=== PATIENT | male | born 1975 | race Two or more races ===

== ENCOUNTER 2020-06-03 15:54 | Outpatient (RCR) | payer MEDICAID, SELFPAY | END 2020-06-05 11:30 | disposition other institution (70) | LOC: HO.PT 15:54 | PROVIDERS: PCP Internal Medicine; Visit Provider General Practice | DX: M25.512 Pain in left shoulder (principal) | CPT/HCPCS: 97110; 97161 ==

== ENCOUNTER 2024-03-07 09:47 | Outpatient (AMB) | payer MEDICAID, SELFPAY ==
--- NOTE | 2024-03-07 09:59 | A.OFFVIS_ITS ---
Intake Visit Reasons: Left knee pain and giving way Intake Note: Meli is a 48 year old male who presents with complaints of progressively worsening left knee pain and giving way. The patient states that he did undergo surgery on his left knee approximately 15 years ago. He got fairly good relief from that surgery initially. The patient states that he re-injured his left knee 1 year ago. He twisted his knee and had acute onset of pain. He states that his left knee will give out several times per day. He has not been able to exercise because of his pain and instability. He has done physical therapy exercises which aggravated his pain. He has also tried Tylenol and anti- inflammatory medicines which gave him minimal relief. He would like to hold off on surgery if at all possible. Allergies No Known Allergies Allergy (Verified 03/07/24 09:59) Physical Exam Const Other: Well-nourished well-developed very friendly male awake alert and oriented x3 in no acute distress Extrem Other: Bilateral lower extremity examination shows good capillary refill, no skin lesions noted, normal sensation light touch Left knee examination shows a minimal effusion, minimal crepitus with range of motion, tenderness along his medial joint line, positive Pawel's test, no instability Results Reviewed Results Reviewed: X-rays of the patient's left knee taken today show mild diffuse joint space narrowing, no acute bony abnormalities Assessment & Plan Assessment & Plan (1) Left knee pain: Code(s): M25.562 - Pain in left knee Category: Medical Plan Mr. Edwards presents with left knee pain and mechanical symptoms most likely due to a tear of his medial meniscus. I had a lengthy discussion with the patient regarding the treatment options. He wishes to hold off on surgery for as long as possible. I agree with this plan. I did have him fitted with a stabilizing knee brace. I do feel that the braces a medical necessity to help prevent future falls because of his symptoms of instability. We will hold off on an MRI for now. I did give him a prescription for Celebrex to help with his discomfort. He will follow up with me on an as-needed basis should his symptoms not plateau at an unacceptable level over the next few months. Feel free to call me at any time should questions regarding his orthopedic management arise. Thank you very much for asking me to see this very friendly gentleman. I spent 20 minutes in reviewing the patient's records and imaging studies, seeing the patient and documenting in the medical record. Orders: Orders XR knee LT 3V Today M25.562 - Pain in left knee Medications: New celecoxib (Celebrex) 200 mg PO DAILY PRN 30 caps 2RF pain Coding Level of Care Code New Pt Level 3 (75733) Complex EM visit Add On G2211 Diagnoses Left knee pain M25.562
== END 2024-03-07 10:14 | disposition home or self-care (01) ==
PROVIDERS: PCP Internal Medicine; Visit Provider Orthopaedic Surgery
DX: M25.562 Pain in left knee (principal)
CPT/HCPCS: 99203

== ENCOUNTER 2024-03-07 10:37 | Outpatient (REF) | payer MEDICAID, SELFPAY ==
--- NOTE | ~2024-03-07 | XR_ITS ---
EXAMINATION: XR KNEE LEFT 3 VIEWS CLINICAL INFORMATION: Pain in left knee M25.562. COMPARISON: XR Left knee 01/30/2009 (report only). TECHNIQUE: Three views of the left knee. FINDINGS: No fracture or joint effusion. Alignment is anatomic. Mild medial and lateral compartment narrowing. No abnormal soft tissue calcification. Post surgical changes of the proximal tibia and distal femur. XR/XR knee LT 3V IMPRESSION: Mild medial and lateral compartment narrowing. Electronically signed by: Batsheva Bhardwaj MD 04/26/2024 03:34 PM EST RP
== END 2024-03-07 10:38 | disposition home or self-care (01) ==
LOC: HO.HOSX 10:37
PROVIDERS: Visit Provider Orthopaedic Surgery
DX: M25.562 Pain in left knee (principal)
CPT/HCPCS: 73562; 99202

== ENCOUNTER 2024-10-13 08:26 | Outpatient (AMB) | payer OTHER, SELFPAY ==
--- OUTSIDE RECORDS SUMMARY | 2024-10-13 08:29 | XMS_ITS | Clinical Summary ---
Author Organization [employer] Address [address] [place] [address] Care Team Providers Care Associate Product Integrity Engineer Name Role Phone Unavailable Primary Care Provider Unavailabl e Social History Tobacco Use Types Packs/Day Years Used Date Smoking Tobacco: Never Assessed Sex and Gender Information Value Date Recorded Sex Assigned at Male 03/16/2022 10:14 AM EDT Legal Sex Male 10:14 AM EDT Gender Identity Male 03/16/2022 10:14 AM EDT Sexual Orientation Straight 03/16/2022 10 :14 AM EDT Plan of Treatment Health Maintenance Due Date Last Done Comments CT Colonography 1973 Colonoscopy 1973 Colorectal Cancer Screening 1973 Depression Screening 1973 FIT DNA/Cologuard 1973 FIT 1973 FOBT 1973 SDOH Screening 1973 Sigmoidoscopy 1973 Disability Screening 1973 Alcohol/Substance Use Screening 1985 Tobacco Screening 1985 Family Planning (PISQ) 1988 Hepatitis C Screening 09/19/1991 DTaP/Tdap/Td Vaccines (1 - Tdap) 1992 Hepatitis B Vaccines (1 of 3 - 19+ 3-dose series) 1992 Pneumococcal Vaccine: 50+ Years (1 of 1 - PCV) 09/19/2023 Zoster Vaccines (1 of 2) 09/19/2023 COVID-19 Vaccine ( - 2023-2 5 season) 2024 07/29/2021, 10/18/2020, 09/20/2020 Influenza Vaccine (#1) 2024 4, 03/20/2022 Lipid Panel 04/29/2025 04/29/2020 RSV Patients and Patients Aged 60 years or older (1 - 1-dose 75+ series) 2048 HIV Screening Completed 03/20/2022 HIB Vaccines Aged Out No longer eligi ble based on patient's age to complete this topic HPV Vaccines Aged Out No longer eligi ble based on patient's age to complete this topic Hepatitis A Vaccines Aged Out No long er eligible based on patient's age to complete this topic IPV Vaccines Aged Out No longer eligi ble based on patient's age to complete this topic Meningococcal B Vaccine Aged Out No l onger eligible based on patient's age to complete this topic Meningococcal Vaccine Aged Out No seth thea eligible based on patient's age to complete this topic RSV under 20 months Aged Out No longe r eligible based on patient's age to complete this topic Rotavirus Vaccines Aged Out No longer eligible based on patient's age to complete this topic Procedures Procedure Name Priority Date/Time Associated Diagnosis Comments LIPID PANEL, STANDARD Routine 04/29/2020 2:42 PM EST from Last 3 Months or Most Recently Relevant to Health Maintenance Results * (ABNORMAL) LIPID PANEL, STANDARD (04/29/2020 2:42 PM EST) Chol/HDLC Ratio 5.1(H) <5.0 (calc) [facility] Cholesterol, Total 240(H) <200 mg/dL [facility] HDL Cholesterol 47 > OR = 40 mg/dL [facility] LDL Cholesterol SEE COMMENT mg/dL (calc) [facility] Comment: ?? LDL cholesterol not calculated. Triglyceride levels greater than 400 mg/dL invalidate calculated LDL results. ?? Reference range: <100 ?? Desirable range <100 mg/dL for primary prevention; ?? <70 mg/dL for patients with CHD or diabetic patients ?? with > or = 2 CHD risk factors. ?? LDL-C is now calculated using the Manfred ?? calculation, which is a validated novel method providing ?? better accuracy than the Friedewald equation in the ?? estimation of LDL-C. ?? Vishnu AGUAYO et al. KATHRIN. 2013;310(19): 5620-3468 ?? (http://PoweredAnalytics.Eyeona/faq/FPN015) Non-HDL Cholesterol 193(H) <130 mg/dL (calc) [facility] Comment: For patients with diabetes plus 1 major ASCVD risk ?? factor, treating to a non-HDL-C goal of <100 mg/dL ?? (LDL-C of <70 mg/dL) is considered a therapeutic ?? option. Triglycerides 484(H) <150 mg/dL [facility] Comment: ?? If a non-fasting specimen was collected, consider repeat triglyceride testing on a fasting specimen if clinically indicated. ?? Marisela et al. J. of Clin. Lipidol. 2015;9:129-169. ?? 04/29/2020 2:42 PM EST us Elizabeth Barger MD LAB BLOOD ORDERABLES Final Res ult [facility] [address] from Last 3 Months or Most Recently Relevant to Health Maintenance Insurance
--- NOTE | 2024-10-13 08:40 | MHC.OFFVIS ---
Vital Signs 10/13/24 08:46 Height 5 ft 8 in Weight 200 lb BMI 30.4 Handedness Right Intake Visit Reasons: New Pt - left shoulder injury, 09/07/24 Intake Note: Meli is a 49 year old right hand dominant male who presents today with a sling as a new patient for a evaluation of his left shoulder pain, 09/07/24. Patient reports he feel off 3 step ladder. He injured his left shoulder and ribs. Patient is in a sling and he feels that his shoulder is very heavy. ROM is very limited. Patient has tried naproxen with mild relief. Impression (09/07/24): No acute bony abnormality in the left shoulder Predatory Game Hunter Services: Predatory Game Hunter Present (Manolo ([id number])) Allergies No Known Allergies Allergy (Verified 10/03/24 15:30) HPI HPI New Pt - left shoulder injury, 09/07/24: Details: Mr. Edwards is a 49-year-old right-hand dominant male who presents to the office today for evaluation of a left shoulder injury that occurred while at work on 09/07/2024. He states that he was climbing a ladder and fell off. He has pain in his neck, shoulder and occasionally travels down the left upper extremity. He endorses occasional numbness and tingling in the left hand. He has tried 2 weeks of physical therapy but was unable to continue due to pain. He reports that the left upper extremity feels heavy and he is lacking range of motion. He has also tried naproxen that gave him no relief. 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 Minimal external rotation. Pain with cross-body reach. Unable to perform empty can and drop arm due to pain and range of motion and restrictions. Occasional numbness and tingling in the left hand. Assessment & Plan Assessment & Plan (1) Injury of left rotator cuff: Code(s): S46.002A - Unspecified injury of muscle(s) and tendon(s) of the rotator cuff of left shoulder, initial encounter Category: Medical (2) Adhesive capsulitis of left shoulder: Code(s): M75.02 - Adhesive capsulitis of left shoulder Category: Medical Plan Mr. Edwards is a 49-year-old right-hand dominant male who presents to the office today for evaluation of a left shoulder injury that occurred while at work on 09/07/2024. He states that he was climbing a ladder and fell off. He has pain in his neck, shoulder and occasionally travels down the left upper extremity. He endorses occasional numbness and tingling in the left hand. He has tried 2 weeks of physical therapy but was unable to continue due to pain. He reports that the left upper extremity feels heavy and he is lacking range of motion. He has also tried naproxen that gave him no relief. While in the office today, we discussed the role of MRI imaging of the left shoulder to evaluate the integrity of the shoulder and surrounding structures. Patient is amenable in moving forward with this. An MRI order has been placed while in the office today. I have recommended the patient come out of the sling as he is beginning to develop adhesive capsulitis. I did educate the patient that this could exacerbate his current diagnosis. He will follow up after the MRI is obtained, sooner if needed. In the meantime, I did provide him with an out-of-work note pending MRI. X-rays of the left shoulder which were obtained while in the office today and were reviewed by me, Juliana Holliday PA-C, revealed no acute fracture or dislocation. Orders: Orders MR shoulder LT wo con Today M75.02 - Adhesive capsulitis of left shoulder, S46.002A - Unspecified injury of muscle(s) and tendon(s) of the rotator cuff of left shoulder, initial encounter XR shoulder LT min 2V Today M25.519 - Pain in unspecified shoulder Coding Level of Care Code New Pt Level 4 (83411) Diagnoses Injury of left rotator cuff S46.002A Adhesive capsulitis of left shoulder M75.02
[2024-10-13 08:46] VITALS: BMI 30.4
== END 2024-10-13 09:00 | disposition home or self-care (01) ==
LOC: HO.HOS 08:27
PROVIDERS: PCP Internal Medicine; Visit Provider Physician Assistant
DX: S46.002A Unspecified injury of muscle(s) and tendon(s) of the rotator cuff of left shoulder, initial encounter (principal); M75.02 Adhesive capsulitis of left shoulder
CPT/HCPCS: 99214

== ENCOUNTER 2024-10-13 08:31 | Outpatient (REF) | payer OTHER, MEDICAID, SELFPAY ==
--- NOTE | ~2024-10-13 | XR_ITS ---
CLINICAL HISTORY: M25.519 - Pain in unspecified shoulder 3 view left shoulder Comparison: None Findings: No fractures or dislocations. No significant loss of joint space or osteophytes. No erosions. No radiopaque foreign body. IMPRESSION: 1. No acute findings This document has been electronically signed by: Mic Del Valle MD on 10/14/2024 10:08:26
--- OUTSIDE RECORDS SUMMARY | 2024-10-16 08:43 | XMS_ITS | Clinical Summary ---
Author Organization [employer] Address [address] [place] [address] Care Team Providers Care Publications Inspector Name Role Phone Unavailable Primary Care Provider [...] season) 2024 07/29/2021, 10/18/2020, 09/20/2020 Influenza Vaccine (Season Ended) 2025 06/18/2023, 03/20/2022 Lipid Panel 04/29/2025 04/29/2020 RSV Patients [...] ?? Vishnu AGUAYO et al. KATHRIN. 2013;310(19): 9941-6970 ?? (http://BooknGo.Veeqo/faq/FCX835) Non-HDL Cholesterol 193(H) <130 mg/dL (calc) [facility] Comment: For patients with diabetes plus 1 major ASCVD risk ?? factor, treating to a non-HDL-C goal of <100 mg/dL ?? (LDL-C of <70 mg/dL) is considered a therapeutic ?? option. Triglycerides 484(H) <150 mg/dL [facility] Comment: ?? If a non-fasting specimen was collected, consider repeat triglyceride testing on a fasting specimen if clinically indicated. ?? Marisela et al. J. of Clin. Lipidol. 2015;9:129-169. ?? 04/29/2020 2:42 PM EST us Elizabeth Barger MD LAB BLOOD ORDERABLES Final Res ult [facility] [address] from Last 3 Months or Most Recently Relevant to Health Maintenance Insurance
== END 2024-10-13 08:32 | disposition home or self-care (01) ==
LOC: HO.HOSX 08:31
PROVIDERS: Visit Provider Physician Assistant
DX: M25.512 Pain in left shoulder (principal); S46.002A Unspecified injury of muscle(s) and tendon(s) of the rotator cuff of left shoulder, initial encounter; M75.02 Adhesive capsulitis of left shoulder
CPT/HCPCS: 73030; 99212

== ENCOUNTER → 2024-10-13 08:33 | Outpatient (BNV) | payer OTHER, SELFPAY | PROVIDERS: Visit Provider Specialist | DX: M25.512 Pain in left shoulder (principal) | CPT/HCPCS: 73030 ==

== ENCOUNTER 2024-10-22 19:41 | Outpatient (REF) | payer OTHER, SELFPAY ==
--- NOTE | ~2024-10-22 | MR_ITS ---
CLINICAL HISTORY: S46.002A - Unspecified injury of muscle(s) and tendon(s) of the rotator ... MR left shoulder without gadolinium Comparison: OT - MR SHOULDER LT WO CON - 10/22/24 20:26 EDT DX/[place] - XR SHOULDER LT MIN 2V - 10/13/24 08:33 EDT Findings: No acute fractures. No pathologic bone lesions. Mild glenohumeral and moderate acromioclavicular joint osteoarthritis. Type II acromion. No effusion. Small amount of subacromial fluid. Moderate T2 signal elevation diffusely throughout the supraspinatus tendon at the humeral insertion site extending to the musculotendinous junction, indicating tendinopathy. Superimposed low-grade intrasubstance and bursal surface tearing of the anterior, mid, and posterior supraspinatus tendon at the humeral insertion site extending to the musculotendinous junction. Moderate grade intrasubstance tearing of the mid/upper subscapularis tendon at the humeral insertion site extending to the musculotendinous junction. Infraspinatus and teres minor tendons are intact. No rotator cuff atrophy. The long head of biceps is intact. There is linear high T2 signal intensity traverses the mid posterior and posteroinferior labrum, as well as the anteroinferior labrum. IMPRESSION: 1. Supraspinatus tendinopathy with superimposed low-grade tears. 2. Moderate grade tearing of the subscapularis tendon. 3. Acromioclavicular and glenohumeral joint osteoarthritis. 4. Mild subacromial bursitis. 5. Glenoid labral tearing. This document has been electronically signed by: Santhosh Garcia MD on 10/23/2024 15:39:25
== END 2024-10-22 19:42 | disposition home or self-care (01) ==
LOC: HO.MRI 19:41
PROVIDERS: Visit Provider Physician Assistant
DX: S46.002D Unspecified injury of muscle(s) and tendon(s) of the rotator cuff of left shoulder, subsequent encounter (principal); M75.02 Adhesive capsulitis of left shoulder
CPT/HCPCS: 73221

== ENCOUNTER → 2024-10-22 19:47 | Outpatient (BNV) | payer OTHER, SELFPAY | PROVIDERS: Visit Provider Radiology Diagnostic Radiology | DX: S46.012A Strain of muscle(s) and tendon(s) of the rotator cuff of left shoulder, initial encounter (principal); S43.432A Superior glenoid labrum lesion of left shoulder, initial encounter; M19.012 Primary osteoarthritis, left shoulder | CPT/HCPCS: 73221 ==

== ENCOUNTER 2024-12-19 09:32 | Outpatient (AMB) | payer OTHER, SELFPAY ==
--- NOTE | 2024-12-19 09:36 | A.OFFVIS_ITS ---
Vital Signs 12/19/24 09:43 Height 5 ft 8 in Intake Visit Reasons: OV-Lt shoulder MRI review 09/07/24 Intake Note: Meli is a 49 year old right hand dominant male who presents today for a MRI review of his left shoulder. Patient mentions that he is still having pain in his shoulder and he is unable to moves his neck. IMPRESSION: 1. Supraspinatus tendinopathy with superimposed low-grade tears. 2. Moderate grade tearing of the subscapularis tendon. 3. Acromioclavicular and glenohumeral joint osteoarthritis. 4. Mild subacromial bursitis. 5. Glenoid labral tearing. Chief Hospital Administrator Services: Chief Hospital Administrator Present (([id number])) Allergies No Known Allergies Allergy (Verified 12/19/24 09:43) HPI HPI OV-Lt shoulder MRI review 09/07/24: Details: Mr. Edwards is a 49-year-old male who presents to the office today for follow-up status post left shoulder MRI. Date of injury was 09/07/2024 after he fell off of a ladder. Patient reports that his symptoms have been increasingly worsening since his last appointment. He now is unable to move his neck due to pain. He endorses numbness and tingling in the left upper extremity. 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 Minimal external rotation. Pain with cross-body reach. Unable to perform empty can and drop arm due to pain and range of motion and restrictions. Occasional numbness and tingling in the left hand. Left-hand decreased corporate concierge strength. Unable to turn his head to the left side. Minimal rotation to the right side. Psych Appearance: grossly normal Mental Status: mental status grossly normal Attitude: cooperative Assessment & Plan Assessment & Plan (1) Cervical pain: Code(s): M54.2 - Cervicalgia Category: Medical Plan Mr. Edwards is a 49-year-old male who presents to the office today for follow-up status post left shoulder MRI. Date of injury was 09/07/2024 after he fell off of a ladder. Patient reports that his symptoms have been increasingly worsening since his last appointment. He now is unable to move his neck due to pain. He endorses numbness and tingling in the left upper extremity. While the office today, I discussed that the MRI findings are negative for any shoulder pathology. Patients condition seems to be worsening with increasing numbness, tingling and weakness in the left upper extremity. I believe at this point there is likely a cervical spine involvement. Therefore, I have placed an MRI to evaluate the cervical spine and surrounding structures as well as a referral to Dr. Fernandez for MRI review and further evaluation and treatment. He will be out of work until his evaluation with Dr. Fernandez. MRI left shoulder: IMPRESSION: 1. Supraspinatus tendinopathy with superimposed low-grade tears. 2. Moderate grade tearing of the subscapularis tendon. 3. Acromioclavicular and glenohumeral joint osteoarthritis. 4. Mild subacromial bursitis. 5. Glenoid labral tearing. Orders: Orders MR cervical spine wo con 12/19/24 M54.2 - Cervicalgia, M79.602 - Pain in left arm, R29.898 - Other symptoms and signs involving the musculoskeletal system Coding Level of Care Code Est Pt Level 3 (40408) Diagnoses Cervical pain M54.2
--- OUTSIDE RECORDS SUMMARY | 2024-12-19 09:57 | XMS_ITS | Clinical Summary ---
Author Organization [employer] Address [address] [place] [address] Care Team Providers Care Senior Vice President Name Role Phone Unavailable Primary Care Provider Unavailabl e Encounters Date Type Department Care Team Description 12/05/2024 Population Health Risk Score [facility] (C3) Department [address] [address] Provider, Population Health Generic from Last 3 Months Social History Tobacco Use Types Packs/Day Years [...] Vaccines (1 of 2) 09/19/2023 COVID-19 Vaccine (2023-2 5 season) 2024 07/29/2021, 10/18/2020, 09/20/2020 Influenza Vaccine (#1) 2025 4, 03/20/2022 Lipid Panel 04/29/2025 04/29/2020 RSV [...] COMMENT mg/dL (calc) [facility] Comment: LDL cholesterol not calculated. Triglyceride levels greater than 400 mg/dL invalidate calculated LDL results. Reference range: <100 Desirable range <100 mg/dL for primary prevention; <70 mg/dL for patients with CHD or diabetic patients with > or = 2 CHD risk factors. LDL-C is now calculated using the Manfred calculation, which is a validated novel method providing better accuracy than the Friedewald equation in the estimation of LDL-C. Vishnu AGUAYO et al. KATHRIN. 2013;310(19): 7409-6186 (http://education.QuestDiagnostics.com/faq/QYY315) Non-HDL Cholesterol 193(H) <130 mg/dL (calc) [facility] Comment: For patients with diabetes plus 1 major ASCVD risk factor, treating to a non-HDL-C goal of <100 mg/dL (LDL-C of <70 mg/dL) is considered a therapeutic option. Triglycerides 484(H) <150 mg/dL [facility] Comment: If a non-fasting specimen was collected, consider repeat triglyceride testing on a fasting specimen if clinically indicated. Marisela et al. J. of Clin. Lipidol. 2015;9:129-169. 04/29/2020 2:42 PM EST us Elizabeth Barger MD LAB BLOOD ORDERABLES Final Res ult [facility] [address] from Last 3 Months or Most Recently Relevant to Health Maintenance Insurance
--- OUTSIDE RECORDS SUMMARY | 2024-12-19 09:58 | XMS_ITS | Clinical Summary ---
Author Organization [facility] Address [address] [place] [address] Care Team Providers Care Cable Splicer Helper Name Role Phone Sushant Posey Primary Care Provider [phone] Social History Tobacco Use Types Packs/Day Years Used Date Smoking Tobacco: Never Assessed Sex and Gender Information Value Date Recorded Sex Assigned at Not on file Legal Sex Male 1:55 PM EST Gender Identity Not on file Sexual Orientation Not on file Plan of Treatment Health Maintenance Due Date Last Done Comments Hepatitis B Vaccines (1 of 3 - 19+ 3-dose series) 1992 Pneumococcal Vaccine: 50+ Years (1 of 1 - PCV) 09/19/2023 COVID-19 Vaccine (2023- season) 2024 06/18/2023, 03/20/2022, 10/18/2020, Additional history exists Depression Screening 05/17/2024 Influenza Vaccine (#1) 2025 , 06/18/2023, 03/20/2022 DTaP,Tdap,and Td Vaccines (2 - Td or Tdap) 10/07/2033 10/08/2023 Zoster Vaccines Completed 01/21/2024, 10/08/2023 HIB Vaccines Aged Out No longer eligi [...] on patient's age to complete this topic MMR Vaccines Aged Out No longer eligi ble based on patient's age to complete this topic Meningococcal ACWY Vaccine Aged Out N o longer eligible based on patient's age to complete this topic Meningococcal B Vaccine Aged Out No l onger eligible based on patient's age to complete this topic RSV Immunization Patients Under 20 months Aged Out No longer eligible based on patient's age to complete this topic Varicella Vaccines Aged Out No longer eligible based on patient's age to complete this topic Care Teams Cable Splicer Helper Relationship Specialty Start Date End Date Sushant Posey PA [address] [place] [address] PCP - General Internal Medicine 06/09/21
== END 2024-12-19 10:09 | disposition home or self-care (01) ==
LOC: HO.HOS 09:33
PROVIDERS: PCP Internal Medicine; Visit Provider Physician Assistant
DX: M54.2 Cervicalgia (principal)
CPT/HCPCS: 99213

== ENCOUNTER → 2024-12-19 09:32 | Outpatient (BNVA) | payer OTHER, MEDICAID, SELFPAY | PROVIDERS: PCP Internal Medicine; Visit Provider Physician Assistant | DX: Z71.2 Person consulting for explanation of examination or test findings (principal); M54.2 Cervicalgia | CPT/HCPCS: 99212 ==

== ENCOUNTER 2025-01-03 18:18 | Outpatient (REF) | payer OTHER, SELFPAY ==
--- NOTE | ~2025-01-03 | MR_ITS ---
EXAMINATION: MR CERVICAL SPINE WITHOUT IV CONTRAST CLINICAL INFORMATION: Pain in left arm COMPARISON: None available. TECHNIQUE: MRI of the cervical spine was obtained using routine sequences without contrast. FINDINGS: Alignment and vertebrae: Normal alignment. No compression fracture. No bone marrow edema. Intervertebral discs: Normal signal and height. Spinal cord: No evidence of spinal cord compression. No abnormal cord signal. Soft tissues: Prevertebral and posterior paraspinous soft tissues are unremarkable. Findings by level: C2-C3: No spinal canal or neural foramina stenosis. C3-C4: Minimal disc osteophyte complex and facet arthropathy contributes to mild left neuroforaminal stenosis. No spinal canal or right neuroforaminal stenosis. C4-C5: Minimal disc osteophyte complex contributes to mild left neuroforaminal stenosis. No spinal canal or right neuroforaminal stenosis. C5-C6: No spinal canal or neuroforaminal stenosis. C6-C7: No spinal canal or neuroforaminal stenosis. C7-T1: No spinal canal or neuroforaminal stenosis. MR/MR cervical spine wo con IMPRESSION: Minimal degenerative changes at C3-C4 and C4-C5 result in mild left neuroforaminal stenosis at both levels. No severe spinal canal or neuroforaminal stenosis along the cervical spine. Electronically signed by: Michelle Cm MD 01/04/2025 08:08 AM EDT
--- OUTSIDE RECORDS SUMMARY | 2025-01-03 18:23 | XMS_ITS | Clinical Summary ---
Author Organization [facility] Address [address] [place] [address] Care Team Providers Care Manager Contract Name Role Phone Luiz Ma MD Primary Care Provider Source Comments PLEASE NOTE, if this patient is a minor, it may be UNLAWFUL to discuss sensitive information that is contained in these records (such as FAMILY PLANNING, MENTAL HEALTH or SUBSTANCE ABUSE) with the minor patient's parent or other person without the patient's specific authorization.[facility] Allergies No known active allergies Medications valsartan (DIOVAN) 80 mg tablet Take 1 Tablet by mouth once daily 90 Tablet 1 07/07/2024 Active naproxen (NAPROSYN) 500 mg tablet Take 500 mg by mouth 2 (two) times daily with a meal Active lidocaine (LIDODERM) 5 % patch Place 1 Patch onto the skin daily Apply 1 patch to the affected area for a maximum of 12 hours, followed by removal for 12 hours. 30 Patch 1 09/20/2024 Active fluticasone (FLONASE) 50 mcg/actuation nasal spray Place 2 Sprays in both nostrils once daily 16 g 1 09/20/2024 Active Active Problems Problem Noted Date Diagnosed Date Chronic left shoulder pain 09/20/2024 Seasonal allergic rhinitis due to pollen 024 Primary osteoarthritis of left knee 10/08/2023 Psoriasis 07/03/2022 Prediabetes 03/20/2022 Essential hypertension 03/20/2022 Class 1 obesity due to exces s calories without serious comorbidity with body mass index (BMI) of 32.0 to 32.9 in adult 03/20/2022 Erectile dysfunction due to arterial insufficien cy 03/20/2022 Immunizations Immunization Administration Dates Next Due Flu, Preservative Free 06/18/2023,03/20/2022 Influenza (FLUBLOK),recombinant,injectable,preservative Free 01/21/2024 Moderna COVID-19 Vaccine, re d cap blue label, 12+ Primary Series 10/18/2020,09/20/2020 Pfizer COVID-19 (Comirnaty), Mrna, Lnp-s, Pf, [place]-sucrose, 30 Mcg/0.3 Ml, 12yr+ 06/18/2023 Pfizer-BioNTUppidy COVID-19 Vac cine Bivalent, (STARK PFIZER-BIONTECH COVID-19 VACCINE BIVALENT, (STARK CAP 03/20/2022 TDAP 10/08/2023 ZOSTER VACCINE, RECOMBINANT (SHINGRIX) 4,10/08/2023 Social History Tobacco Use Types Packs/Day Years Used Date Smoking Tobacco: Former Cigarettes 0.5 7 0 06/18/2013 - 06/18/2020 Smokeless Tobacco: Never Tobacco Cessation:Counseling Given: Not Answered Alcohol Use Standard Drinks/Week Comments Yes 0 (1 standard drink = 0.6 oz pur e alcohol) sometimes Social Connections Answer Date Recorded How often do you feel lonely or isolated from th ose around you? 1 09/20/2024 Financial Resource Strain Answer Date R ecorded Hard to pay for: Food 1 09/20/2024 Stress Answer Date Recorded Do you feel these kinds of stress these days? 1 09/20/2024 Physical Activity Answer Date Recorded Physical Activity 0 05/20/2021 Food Insecurity Answer Date Recorded Hard to pay for: Food 1 09/20/2024 Transportation Needs Answer Date Record ed Hard to pay for: Transportation 1 09/20/2024 Housing Stability Answer Date Recorded Hard to pay for: Rent/Mortgage payment 1 09/20/2024 Safety and Environment Answer Date Kemal rded Safety 1 10/08/2023 Utilities Answer Date Recorded Hard to pay for: Utilities 1 09/20 Employment Answer Date Recorded Stress 0 06/18/2023 Sex and Gender Information Value Date Recorded Sex Assigned at Male 05/20/2021 12:27 PM PST Legal Sex Male 11:36 AM PDT Gender Identity Male 05/20/2021 12:27 PM PST Sexual Orientation Straight 05/20/2021 12 :27 PM PST Last Filed Vital Signs Vital Sign Reading Time Taken Comments Blood Pressure 123/69 09/20/2024 4:00 PM EDT Pulse 77 09/20/2024 4:00 PM EDT Temperature 36.8 C (98.3 F) 09/20/2024 4:00 PM EDT Respiratory Rate 18 09/20/2024 4:00 PM EDT Oxygen Saturation 96% 09/13/2024 8:56 AM EDT Inhaled Oxygen Concentration - - Weight 92.8 kg (204 lb 9.6 oz) 09/20/2024 4:00 P M EDT Height 172.7 cm (5' 8 ) 09/20/2024 4:00 PM EDT Body Mass Index 31.11 09/20/2024 4:00 PM EDT Plan of Treatment Upcoming Encounters Date Type Department Care Team (Late st Contact Info) Description 01/11/2025 1:20 PM EDT Office Visit [facility] [address] [place] [address] Soco Wiseman FNP [address] [place] [address] Health Maintenance Due Date Last Done Comments CT Colonography 2018 FIT/gFOBT 2018 Fecal DNA 2018 Flexible Sigmoidoscopy 2018 Imm-Pneumococcal 50+ (1 of 1 - PCV) 09/19/2023 [id number] ( season) 2024 06/18/2023, 03/20/2022, 07/29/2021, Additional history exists Imm-Influenza (#1) 2025 01/21/2024, 0 06/18/2023, 03/20/2022 Annual Wellness (Adult): Indicated (All Coverage) 09/20/2025 09/20/2024, 06/18/2023, 03/20/2022, Additional history exists Anxiety Screening 09/20/2025 09/20/2024 Diabetes Screening 09/20/2025 09/20/2024, 0 09/20/2024, 01/21/2024, Additional history exists Tobacco Screening 09/20/2025 09/20/2024, 05/20/2021 Lipid Screening 06/25/2026 06/25/2023, 06/18, 03/20/2022, Additional history exists Colonoscopy 12/08/2032 12/08/2022 Colorectal Cancer Screening 12/08/2032 Imm-DTaP/Tdap/Td (2 - Td or Tdap) 10/07/2033 024 HIV Screening Completed 03/20/2022, 03/20/2022 Hepatitis C Screening Completed 03/20/2022, 022 Imm-Zoster, Recombinant Completed 01/21/2024, 10/07 Alcohol and Drug Screen Completed 09/21/19, 01/21/2024, 10/08/2023, Additional history exists Depression Annual Screen Completed 09/20/2024 Imm-Hepatitis B Discontinued Goals Goal Patient Goal Type Associated Problems Recent Progress Patient-Stated? Author Remain at or Below Target Blood Pressure General On track(02/09/20 10:14 AM PDT) No Rosie Archer, PETER Note: 140/90 monitor bp 3 x weekly General On track(08/06/19 3:25 PM PDT) Yes Rosie Archer, newsperson Procedure Name Priority Date/Time Associated Diagnosis Comments REFERRAL SCANNED DOCUMENT 12/19/2024 3:00 AM EDT HGA1C W/EAG Routine 09/20/2024 4:29 PM EDT Prediabetes LIPIDS W RFLX TO DIRECT LDL Routine 06/25/2023 9:09 AM EST Hypercholesterolemia HISTORIC COLONOSCOPY 12/08/2022 3:00 AM EDT HIV 1/2 AG & AB W/RFLX (4TH GEN) Routine 03/20/2022 3:36 PM EDT Exposure to HIV Routine adult health maintenance HEPATITIS C AB W/RFLX HCV RNA, QT, RT PCR Routine 03/20/2022 3:33 PM EDT Routine general medical examination at a health care facility from Last 3 Months or Most Recently Relevant to Health Maintenance Results * REFERRAL SCANNED DOCUMENT (12/19/2024 3:00 AM EDT) 12/19/2024 3:00 AM EDT us Luiz Ma MD SCAN REFERRAL Final Result * (ABNORMAL) HGA1C W/EAG (09/20/2024 4:29 PM EDT) HEMOGLOBIN A1C 6.3(H) <5.7 % [facility] Comment: For someone without known diabetes, a hemoglobin A1c value between 5.7% and 6.4% is consistent with prediabetes and should be confirmed with a follow-up test. For someone with known diabetes, a value <7% indicates that their diabetes is well controlled. A1c targets should be individualized based on duration of diabetes, age, comorbid conditions, and other considerations. This assay result is consistent with an increased risk of diabetes. Currently, no consensus exists regarding use of hemoglobin A1c for diagnosis of diabetes for children. EAG (MG/DL) 134 mg/dL [facility] EAG (MMOL/L) 7.4 mmol/L [facility] Blood Blood / Unknown 09/20/2024 4 :29 PM EDT 09/20/2024 4:29 PM EDT Narrative [facility] - 09/21/2024 2:06 PM EDT FASTING:NO us Luiz Ma MD LAB - BLOOD DRAW Final Resul t [facility] [address] [place] [id number], [facility] [address] [place] [phone] * (ABNORMAL) LIPIDS W RFLX TO DIRECT LDL (06/25/2023 9:09 AM EST) CHOLESTEROL, TOTAL 219(H) <200 mg/dL [facility] HDL CHOLESTEROL 44 > OR = 40 mg/dL [facility] TRIGLYCERIDES 182(H) <150 mg/dL [facility] LDL-CHOLESTEROL 143(H) 99 mg/dL (calc) [facility] Comment: Reference range: <100 Desirable range <100 mg/dL for primary prevention; <70 mg/dL for patients with CHD or diabetic patients with > or = 2 CHD risk factors. LDL-C is now calculated using the Manfred calculation, which is a validated novel method providing better accuracy than the Friedewald equation in the estimation of LDL-C. Vishnu AGUAYO et al. KATHRIN. 2013;310(19): 7318-3048 (http://education.AudioTag/faq/MNZ466) CHOL/HDLC RATIO 5.0(H) <5.0 (calc) [facility] NON-HDL CHOLESTEROL 175(H) <130 mg/dL (calc) [facility] Comment: For patients with diabetes plus 1 major ASCVD risk factor, treating to a non-HDL-C goal of <100 mg/dL (LDL-C of <70 mg/dL) is considered a therapeutic option. Blood Blood / Unknown 06/25/2023 9 :09 AM EST 06/25/2023 9:10 AM EST Narrative [facility] - 06/26/2023 5:51 AM EST FASTING:YES Luiz Ma MD LAB - BLOOD DRAW Final Resul t [facility] [address] [place] [id number], [facility] [address] [place] [phone] * HISTORIC COLONOSCOPY (12/08/2022 3:00 AM EDT) 12/08/2022 3:00 AM EDT us Luiz Ma MD PROCEDURES Edited Resul t - Final * HIV 1/2 AG & AB W/RFLX (4TH GEN) (03/20/2022 3:36 PM EDT) HIV AG/AB, 4TH GEN NON-REAC TIVE NON-REAC TIVE [facility] Comment: HIV-1 antigen and HIV-1/HIV-2 antibodies were not detected. There is no laboratory evidence of HIV infection. PLEASE NOTE: This information has been disclosed to you from records whose confidentiality may be protected by state law. If your state requires such protection, then the state law prohibits you from making any further disclosure of the information without the specific written consent of the person to whom it pertains, or as otherwise permitted by law. A general authorization for the release of medical or other information is NOT sufficient for this purpose. For additional information please refer to http://Ceres.MindBodyGreen/faq/YAV279 (This link is being provided for informational/ educational purposes only.) The performance of this assay has not been clinically validated in patients less than 2 years old. Blood Blood / Unknown 03/20/2022 3 :36 PM EDT 03/20/2022 3:36 PM EDT Sushant GÓMEZ LAB - BLOOD DRAW Edited Result - Final Performing Organization Address [facility] Co de Phone Number [facility] [address] [address], [facility] [address] [place] [address],[place] [address] * Hep C Antibody with Reflex HCV RNA (03/20/2022 3:33 PM EDT) HEPATITIS C ANTIBODY NON-REACT IGNACIO NON-REACT IGNACIO [facility] SIGNAL TO CUT-OFF 0.03 <1.00 [facility] Comment: HCV antibody was non-reactive. There is no laboratory evidence of HCV infection. In most cases, no further action is required. However, if recent HCV exposure is suspected, a test for HCV RNA (test code 68717) is suggested. For additional information please refer to http://education.MindBodyGreen/faq/CFO09s6 (This link is being provided for informational/ educational purposes only.) Blood Blood / Unknown 03/20/2022 3 :33 PM EDT 03/20/2022 3:33 PM EDT Narrative [facility] - 03/21/2022 11:30 AM EDT FASTING:NO Luiz Ma MD LAB - BLOOD DRAW Edited Resu lt - Final Performing Organization Address City/[facility]/ZIP Co de Phone Number [facility] [address] [facility] [address] [place] [address], [facility] [address] [facility] [address] [address] from Last 3 Months or Most Recently Relevant to Health Maintenance Insurance [employer] Care Teams Manager Contract Relationship Specialty Start Date End Date Luiz Ma MD [address] [place] [address] PCP - General Internal Medicine 01/13/22
--- OUTSIDE RECORDS SUMMARY | 2025-01-03 18:23 | XMS_ITS | Clinical Summary ---
Author Organization [facility] Address [address] [place] [address] Care Team Providers Care Loader Unloader Name Role Phone Sushant Posey Primary Care Provider [phone] Social History Tobacco Use Types Packs/Day Years [...] age to complete this topic Care Teams Loader Unloader Relationship Specialty Start Date End Date Sushant Posey PA [address] [place] [address] PCP - General Internal Medicine 06/09/21
== END 2025-01-03 18:19 | disposition home or self-care (01) ==
LOC: HO.MRI 18:18
PROVIDERS: Visit Provider Physician Assistant
DX: M79.602 Pain in left arm (principal); M54.2 Cervicalgia; R29.898 Other symptoms and signs involving the musculoskeletal system
CPT/HCPCS: 72141

== ENCOUNTER → 2025-01-03 18:23 | Outpatient (BNV) | payer OTHER, SELFPAY | PROVIDERS: Visit Provider Radiology Body Imaging | DX: M99.71 Connective tissue and disc stenosis of intervertebral foramina of cervical region (principal) | CPT/HCPCS: 72141 ==

== ENCOUNTER 2025-01-26 10:01 | Outpatient (AMB) | payer OTHER, SELFPAY ==
--- NOTE | 2025-01-26 10:03 | A.OFFVIS_ITS ---
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 Patient was seen in office with , at their visit they discussed his left shoulder pain that radiates into the neck. Patient had an accident at work on 09/07/24 by falling off a ladder. Patient had a X ray, MRI of his Cervical spine and a MRI of the shoulder. Patient has a history of left shoulder pain, in 2020 he had a fall and landed on his left side. At today's visit he states that since 09/08 is when the pain started and ever since then has increased. He states that his ROM with his neck is limited due to the pain, constant numbness radiating down to the hand. He has tried and failed physical therapy, he has not tried injections. * Meli gave his consent to have the [employer] Nurse case management rn Mariana Present for today's visit. Financial Internship Required: Yes Financial Internship Services: Financial Internship Present Financial Internship Name: [employer]. Allergies No Known Allergies Allergy (Verified 01/26/25 10:09) HPI Comments Details: Date of injury was 09/07/2024 after he fell off of a ladder. Patient saw Orthopedics Juliana GÓMEZ for left shoulder pain. Patient reported that his symptoms have been increasingly worsening since his last appointment. He was unable to move his neck due to pain. He endorsed numbness and tingling in the left upper extremity. Orthopedics reviewed MRI findings and thought they are negative for any shoulder pathology. Referred to physiatry for further evaluation. They did order an MRI of cervical spine. Which we reviewed today. He says he fell off the ladder on his left arm. Treatment so far included pain medication and PT (has not complete full course due to pain). No injections yet. He pionts to left trapezius and shoulder as source of pain, when he moves the arm, he feels cracking . Limited left shoulder ROM due to pain. Feels heavy when he tries to grab or hold something with left hand. He actually denies numbness, maybe occasional. Left hand weakness. Has not noted atrophy. 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 Patient was appropriately conversant and oriented. Good historian. MSK: Inspection reveals appropriate head and neck positioning. Could not test cervical range of motion, patient, patient complaining of pain. Could not test left shoulder range of motion either due to pain. Tenderness over left upper trapezius and subacromial area. No tend over biceps tendon insertion proximally. Spurling's sign could not do. Speed's test or empty can sign, could not do, patient deferred. Negative carpal compression. Negative Tinel's sign. No intrinsic hand weakness. No hand atrophy. No scapular winging. No atrophy on muscles surrounding scapula. Neurological: Could not do MMT on left upper extremity due to pain. Reflexes are present and symmetric. Vazquez?s negative bilaterally. Vital Signs: BMI result Body Mass Index 29.8 Results Reviewed Results Reviewed: I independently reviewed the results of the following: Cervical MRI did not show any spinal stenosis or nerve compression. Ordering Physician: Juliana Holliday PA-C Date of Service: 01/03/25 Procedure(s): MR cervical spine con Accession Number(s): [id number] cc: Juliana Holliday PA-C; Physician,Unknown ~ EXAMINATION: MR CERVICAL SPINE WITHOUT IV CONTRAST CLINICAL INFORMATION: Pain in left arm COMPARISON: None available. TECHNIQUE: MRI of the cervical spine was obtained using routine sequences without contrast. FINDINGS: Alignment and vertebrae: Normal alignment. No compression fracture. No bone marrow edema. Intervertebral discs: Normal signal and height. Spinal cord: No evidence of spinal cord compression. No abnormal cord signal. Soft tissues: Prevertebral and posterior paraspinous soft tissues are unremarkable. Findings by level: C2-C3: No spinal canal or neural foramina stenosis. C3-C4: Minimal disc osteophyte complex and facet arthropathy contributes to mild left neuroforaminal stenosis. No spinal canal or right neuroforaminal stenosis. C4-C5: Minimal disc osteophyte complex contributes to mild left neuroforaminal stenosis. No spinal canal or right neuroforaminal stenosis. C5-C6: No spinal canal or neuroforaminal stenosis. C6-C7: No spinal canal or neuroforaminal stenosis. C7-T1: No spinal canal or neuroforaminal stenosis. MR/MR cervical spine wo con IMPRESSION: Minimal degenerative changes at C3-C4 and C4-C5 result in mild left neuroforaminal stenosis at both levels. No severe spinal canal or neuroforaminal stenosis along the cervical spine. Ordering Physician: Juliana Holliday PA-C Date of Service: 10/22/24 Procedure(s): MR shoulder LT wo con Accession Number(s): [id number] cc: Juliana Holliday PA-C; Physician,Unknown ~ CLINICAL HISTORY: S46.002A - Unspecified injury of muscle(s) and tendon(s) of the rotator ... MR left shoulder without gadolinium Comparison: OT - MR SHOULDER LT WO CON - 10/22/24 20:26 EDT DX/IA - XR SHOULDER LT MIN 2V - 10/13/24 08:33 EDT Findings: No acute fractures. No pathologic bone lesions. Mild glenohumeral and moderate acromioclavicular joint osteoarthritis. Type II acromion. No effusion. Small amount of subacromial fluid. Moderate T2 signal elevation diffusely throughout the supraspinatus tendon at the humeral insertion site extending to the musculotendinous junction, indicating tendinopathy. Superimposed low-grade intrasubstance and bursal surface tearing of the anterior, mid, and posterior supraspinatus tendon at the humeral insertion site extending to the musculotendinous junction. Moderate grade intrasubstance tearing of the mid/upper subscapularis tendon at the humeral insertion site extending to the musculotendinous junction. Infraspinatus and teres minor tendons are intact. No rotator cuff atrophy. The long head of biceps is intact. There is linear high T2 signal intensity traverses the mid posterior and posteroinferior labrum, as well as the anteroinferior labrum. IMPRESSION: 1. Supraspinatus tendinopathy with superimposed low-grade tears. 2. Moderate grade tearing of the subscapularis tendon. 3. Acromioclavicular and glenohumeral joint osteoarthritis. 4. Mild subacromial bursitis. 5. Glenoid labral tearing. This document has been electronically signed by: Santhosh Garcia MD on 10/23/2024 15:39:25 I reviewed records from the following: Ortho Assessment & Plan Assessment & Plan (1) Injury of left rotator cuff: Code(s): S46.002A - Unspecified injury of muscle(s) and tendon(s) of the rotator cuff of left shoulder, initial encounter Category: Medical Qualifiers: Encounter type: initial encounter Qualified Code(s): S46.002A - Unspecified injury of muscle(s) and tendon(s) of the rotator cuff of left shoulder, initial encounter Plan Left cervical MRI does not show spinal stenosis or nerve compression to explain his symptoms. I do not think his symptoms are coming from cervical spine. No signs of cervical radiculopathy or myelopathy despite complaints of pain. Symptoms and exam are more suggestive of left rotator cuff injury. MRI left shoulder findings reviewed. I spoke with Juliana GÓMEZ regarding patient. We suggested to the patient that Juliana can perform left shoulder injection today, pending worker's comp approval. And then follow up with Dr. Lewis to see if there is any surgical need. Very low suspicion for brachial plexopathy. We will schedule for EMG to rule out. Assessment and plan discussed with patient, and patient was agreeable. All questions were answered thoroughly. Total of 60 minutes spent today including chart review, results review, history taking, physical examination, discussion of assessment and plan, and coordination of care. Sagrario Mc MD, ANGIE Board Certified, [place] [employer] and Rehabilitation (ABPMR) Board Certified, [place] Board [employer] Electrodiagnostic Medicine (ABEM) Orders: Orders NE electromyogram (EMG) Today S46.002A - Unspecified injury of muscle(s) and tendon(s) of the rotator cuff of left shoulder, initial encounter NE nerve conduction velocity Today S46.002A - Unspecified injury of muscle(s) and tendon(s) of the rotator cuff of left shoulder, initial encounter Coding Level of Care Code New Pt Level 5 (99805) Diagnoses Injury of left rotator cuff, initial encounter S46.002A Encounter type: initial encounter
[2025-01-26 10:09] VITALS: BMI 29.8
--- OUTSIDE RECORDS SUMMARY | 2025-01-26 11:22 | XMS_ITS | Clinical Summary ---
Author Organization [facility] Address [address] [place] [address] Care Team Providers Care Database Operator Name Role Phone Unavailable Primary Care Provider Unavailabl e Encounters Date Type Department Care Team Description 12/05/2024 Population Health Risk Score [facility] (C3) Department [address] [address] Provider, Population Health Generic from [...] Planning (PISQ) 1988 Hepatitis C Screening 09/19/1991 Hepatitis B Vaccines (1 of 3 - 19+ 3-dose series) 1992 Pneumococcal Vaccine: 50+ Years (1 of 1 - PCV) 09/19/2023 COVID-19 Vaccine ( season) 2025 06/18/2023, 03/20/2022, 07/29/2021, Additional history exists Influenza Vaccine (#1) 2025 4, 06/18/2023, 03/20/2022 Lipid Panel 04/29/2025 04/29/2020 DTaP/Tdap/Td Vaccines (2 - Td or Tdap) 10/07/2033 10/08/2023 RSV Patients and Patients Aged 60 years or older (1 - 1-dose 75+ series) 2048 HIV Screening Completed 03/20/2022, 03/20/2022 Zoster Vaccines Completed 01/21/2024, 10/08/2023 HIB Vaccines [...] equation in the estimation of LDL-C. Vishnu SS et al. KATHRIN. 2013;310(19): 4457-3674 (http://education.Digital Vision Multimedia Group.com/faq/GOV488) Non-HDL Cholesterol 193(H) <130 mg/dL (calc) [facility] Comment: For patients with diabetes plus 1 major ASCVD risk factor, treating to a non-HDL-C goal of <100 mg/dL (LDL-C of <70 mg/dL) is considered a therapeutic option. Triglycerides 484(H) <150 mg/dL [facility] Comment: If a non-fasting specimen was collected, consider repeat triglyceride testing on a fasting specimen if clinically indicated. Marisela et al. J. of Clin. Lipidol. 2015;9:129-169. 04/29/2020 2:42 PM EST us Elizabeth Barger MD LAB BLOOD ORDERABLES Final Res ult [facility] [address] from Last 3 Months or Most Recently Relevant to Health Maintenance Insurance C3
--- OUTSIDE RECORDS SUMMARY | 2025-01-26 11:22 | XMS_ITS | Clinical Summary ---
Author Organization [facility] Address [address] [place] [address] Care Team Providers Care Anesthetic Assistant Name Role Phone Luiz Ma MD Primary Care Provider Source Comments PLEASE NOTE, if this patient is a minor, it may be UNLAWFUL to discuss sensitive information that is contained in these records (such as FAMILY PLANNING, MENTAL HEALTH or SUBSTANCE ABUSE) with the minor patient's parent or other person without the patient's specific authorization.[facility] Allergies No known active allergies Medications naproxen (NAPROSYN) 500 mg tablet Take 500 mg by mouth 2 (two) times daily with a meal Active lidocaine (LIDODERM) 5 % patch Place 1 Patch onto the skin daily Apply 1 patch to the affected area for a maximum of 12 hours, followed by removal for 12 hours. 30 Patch 1 5 Active fluticasone (FLONASE) 50 mcg/actuation nasal spray Place 2 Sprays in both nostrils once daily 16 g 1 5 Active valsartan (DIOVAN) 80 mg tablet TOME 1 TABLETA POR VIA ORAL TODOS LOS AGOSTO 90 Tablet 5 Active valsartan (DIOVAN) 80 mg tablet Take 1 Tablet by mouth once daily 90 Tablet 1 5 025 Discontinued Active Problems Problem Noted Date Diagnosed Date [...] Pf, [place]-sucrose, 30 Mcg/0.3 Ml, 12yr+ 06/18/2023 Pfizer-BioNTIntegrate COVID-19 Vac cine Bivalent, (STARK PFIZER-BIONTECH COVID-19 [...] 09/20/2024 4:00 PM EDT Plan of Treatment Health Maintenance Due Date Last Done Comments CT Colonography 2018 FIT/gFOBT 2018 Fecal DNA 2018 Flexible Sigmoidoscopy 2018 Imm-Pneumococcal 50+ (1 of 1 - PCV) 09/19/2023 [id number] ( season) 2025 06/18/2023, 03/20/2022, 07/29/2021, Additional history exists Imm-Influenza [...] 03/20/2022 Hepatitis C Screening Completed 03/20/2022, 022 Syphilis Screening Discontinued 07/07/2022 Imm-Zoster, Recombinant Completed 01/21/2024, 10/07 Alcohol and [...] On track(08/06/19 3:25 PM PDT) Yes Rosie Archer RN Procedures Procedure Name Priority Date/Time Associated Diagnosis Comments REFERRAL SCANNED DOCUMENT 12/19/2024 3:00 AM EDT HGA1C W/EAG Routine 09/20/2024 4:29 PM EDT Prediabetes LIPIDS W RFLX TO DIRECT LDL Routine 06/25/2023 9:09 AM EST Hypercholesterolemia HISTORIC COLONOSCOPY 12/08/2022 3:00 AM EDT RPR W/RFLX TITER+FTA+CONF Routine 07/07/2022 8:43 AM EST Exposure to potential infection HIV 1/2 AG & AB W/RFLX (4TH [...] PM EDT) HEMOGLOBIN A1C 6.3(H) <5.7 % [facility] Comment: For someone without known diabetes, a [...] diabetes for children. EAG (MG/DL) 134 mg/dL [facility] EAG (MMOL/L) 7.4 mmol/L [facility] Blood Blood / Unknown 09/20/2024 4 :29 PM EDT 09/20/2024 4:29 PM EDT Narrative [facility] - 09/21/2024 2:06 PM EDT FASTING:NO us Luiz Ma MD LAB - BLOOD DRAW Final Resul t [facility] [address] [place] [address], [facility] [address] [place] [phone] * (ABNORMAL) LIPIDS W RFLX TO DIRECT LDL (06/25/2023 9:09 AM EST) CHOLESTEROL, TOTAL 219(H) <200 mg/dL [facility] HDL CHOLESTEROL 44 > OR = 40 mg/dL [facility] TRIGLYCERIDES 182(H) <150 mg/dL [facility] LDL-CHOLESTEROL 143(H) 99 mg/dL (calc) [facility] Comment: Reference range: <100 Desirable range <100 mg/dL for primary prevention; <70 mg/dL for patients with CHD or diabetic patients with > or = 2 CHD risk factors. LDL-C is now calculated using the Manfred calculation, which is a validated novel method providing better accuracy than the Friedewald equation in the estimation of LDL-C. Vishnu SS et al. KATHRIN. 2013;310(19): 5417-5073 (http://education.Gameleon/faq/ECJ655) CHOL/HDLC RATIO 5.0(H) <5.0 (calc) [facility] NON-HDL CHOLESTEROL 175(H) <130 mg/dL (calc) [facility] Comment: For patients with diabetes plus 1 major ASCVD risk factor, treating to a non-HDL-C goal of <100 mg/dL (LDL-C of <70 mg/dL) is considered a therapeutic option. Blood Blood / Unknown 06/25/2023 9 :09 AM EST 06/25/2023 9:10 AM EST Narrative [facility] - 06/26/2023 5:51 AM EST FASTING:YES us Luiz Ma MD LAB - BLOOD DRAW Final Resul t [facility] [address] [place] [address], [employer] [address] [address] * HISTORIC COLONOSCOPY (12/08/2022 3:00 AM EDT) 12/08/2022 3:00 AM EDT us Luiz Ma MD PROCEDURES Edited Resul t - Final * RPR w/ Reflex Titer/FTA/Confirmation (07/07/2022 8:43 AM EST) RPR (DX) W/REFL TITER AND CONFIRMATORY TESTING NON-REACT IGNACIO NON-REACT IGNACIO [facility] Blood Blood / Unknown 07/07/2022 8 :43 AM EST 07/07/2022 8:43 AM EST us Luiz Ma MD LAB - BLOOD DRAW Final Resul t Performing Organization Address [facility] Co de Phone Number [employer] [facility] [address] [address], [employer] [facility] [address] [facility] (NL[address]) [place] [address] * HIV 1/2 AG & AB W/RFLX (4TH GEN) (03/20/2022 3:36 PM EDT) HIV AG/AB, 4TH GEN NON-REAC TIVE NON-REAC TIVE [employer] [facility] Comment: HIV-1 antigen and HIV-1/HIV-2 antibodies were [...] purpose. For additional information please refer to http://education.Criteo/faq/LWH519 (This link is being provided for informational/ educational purposes only.) The performance of this assay has not been clinically validated in patients less than 2 years old. Blood Blood / Unknown 03/20/2022 3 :36 PM EDT 03/20/2022 3:36 PM EDT Sushant GÓMEZ LAB - BLOOD DRAW Edited Result - Final Performing Organization Address [facility]/ZIP Co de Phone Number [employer] [facility] [address] [address], [employer] [facility] [address] [address] * Hep C Antibody with Reflex HCV RNA (03/20/2022 3:33 PM EDT) HEPATITIS C ANTIBODY NON-REACT IGNACIO NON-REACT IGNACIO [employer] [facility] SIGNAL TO CUT-OFF 0.03 <1.00 [employer] [facility] Comment: HCV antibody was non-reactive. There is no laboratory evidence of HCV infection. In most cases, no further action is required. However, if recent HCV exposure is suspected, a test for HCV RNA (test code 03079) is suggested. For additional information please refer to http://education.Criteo/faq/ZOU96b9 (This link is being provided for informational/ educational purposes only.) Blood Blood / Unknown 03/20/2022 3 :33 PM EDT 03/20/2022 3:33 PM EDT Narrative [facility] [employer] - 03/21/2022 11:30 AM EDT FASTING:NO us Luiz Ma MD LAB - BLOOD DRAW Edited Resu lt - Final [facility] [address] [address], [employer] [place] [employer] [address] [place] [address],[place] [address] from Last 3 Months or Most Recently Relevant to Health Maintenance Insurance [employer] Care Teams Anesthetic Assistant Relationship Specialty Start Date End Date Luiz Ma MD [address] [place] [address] PCP - General Internal Medicine 01/13/22
--- OUTSIDE RECORDS SUMMARY | 2025-01-26 11:22 | XMS_ITS ---
Author Organization [facility] Address [address] [place] [address] Care Team Providers Care Drag Down Name Role Phone Luiz Ma MD Primary Care Provider [phone] [id number] [facility] Program Status:Enrolled (Active) Start date:07/22/2022 Enrollment date:07/22/2022 Case Team Name Relationship Phone Rosie Archer RN(Responsible Staff) [phone] Continued Care and Services Coordination
--- OUTSIDE RECORDS SUMMARY | 2025-01-26 11:22 | XMS_ITS | Clinical Summary ---
Author Organization [facility] Address [address] [place] [address] Care Team Providers Care Medical Instructor Name Role Phone Sushant Posey Primary Care Provider [phone] Social History Tobacco Use Types Packs/Day Years [...] Years (1 of 1 - PCV) 09/19/2023 Depression Screening 05/17/2024 COVID-19 Vaccine (2024- season) 2025 06/18/2023, 03/20/2022, 10/18/2020, Additional history exists Influenza Vaccine (#1) 2025 , 06/18/2023, 03/20/2022 [...] age to complete this topic Care Teams Medical Instructor Relationship Specialty Start Date End Date Sushant Posey PA [address] [place] [address] PCP - General Internal Medicine 06/09/21
== END 2025-01-26 12:27 | disposition home or self-care (01) ==
PROVIDERS: PCP Internal Medicine; Visit Provider Physical Medicine & Rehabilitation
DX: S46.002A Unspecified injury of muscle(s) and tendon(s) of the rotator cuff of left shoulder, initial encounter (principal)
CPT/HCPCS: 99205

== ENCOUNTER → 2025-01-26 10:01 | Outpatient (BNVA) | payer OTHER, MEDICAID, SELFPAY | PROVIDERS: PCP Internal Medicine; Visit Provider Physical Medicine & Rehabilitation | DX: S46.002A Unspecified injury of muscle(s) and tendon(s) of the rotator cuff of left shoulder, initial encounter (principal) | CPT/HCPCS: 20610; 99202; J0665; J1100; J2003 ==

== ENCOUNTER 2025-01-26 11:30 | Outpatient (AMB) | payer OTHER, SELFPAY ==
--- NOTE | 2025-01-26 13:29 | MHC.OFFVIS ---
Intake Visit Reasons: INJ- Left Shoulder Cortisone Injection,WC 09/07/24. Allergies No Known Allergies Allergy (Verified 01/26/25 10:09) HPI HPI INJ- Left Shoulder Cortisone Injection, 09/07/24.: Details: Mr. Edwards is a 49-year-old right-hand dominant male who presents to the office today after seeing physiatry for MRI review of the C-spine. Original injury was 09/07/24 when the patient fell off of a ladder. At his last appointment with me, on 12/19/2024 the patient had increasing pain involving his C-spine and numbness and tingling through the entire left upper extremity. Therefore, an MRI was ordered of the C-spine. Per Dr. Fernandez's interpretation of the MRI there was no spinal stenosis or nerve compression to explain his symptoms. She felt as though his symptoms are more likely suggestive of a rotator cuff injury. 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 Continues to report numbness and tingling in the left upper extremity. Unable to perform any cervical range of motion due to pain. Office Procedures AMB Joint Injection/Aspiration Joint Injection/Aspiration Primary Site: left shoulder Prep: site was prepped using aseptic technique, ethochloride spray was applied and injection warnings given Injected: 40 mg of, with 3 mL of (2% plain lidocaine), 0.25% bupivacaine, in the subcromial space and decadron Approach Used: posterolateral Procedure: The patient tolerated the procedure well, but had some pain with the injection and there was some relief with the local anesthesia Coding 97535 - Large joint Procedure code (CPT) selection complete Assessment & Plan Assessment & Plan (1) Injury of left rotator cuff: Code(s): S46.002A - Unspecified injury of muscle(s) and tendon(s) of the rotator cuff of left shoulder, initial encounter Category: Medical Qualifiers: Encounter type: initial encounter Qualified Code(s): S46.002A - Unspecified injury of muscle(s) and tendon(s) of the rotator cuff of left shoulder, initial encounter Plan Mr. Edwards is a 49-year-old right-hand dominant male who presents to the office today after seeing physiatry for MRI review of the C-spine. Original injury was 09/07/24 to the left shoulder when the patient fell off of a ladder. At his last appointment with me, on 12/19/2024 the patient had increasing pain involving his C-spine and numbness and tingling through the entire left upper extremity. Therefore, an MRI was ordered of the C-spine. Per Dr. Fernandez's interpretation of the MRI there was no spinal stenosis or nerve compression to explain his symptoms. She felt as though his symptoms are more likely suggestive of a rotator cuff injury. The patient was offered a cortisone injection in the left shoulder. The patient was explained the risks, benefits, and alternatives to receiving this injection. After receiving consent for the injection, the patient had the procedure done while in the office today. The patient tolerated the procedure well with no complications. Additionally, I placed an order for physical therapy. Dr. Fernandez to order an EMG study as well to evaluate the numbness and tingling in the left upper extremity. I would like to see the patient back after a course of physical therapy and EMG study is complete. Follow-up will be after the EMG is obtained, or sooner if needed Coding Level of Care Code Est Pt Level 3 (69699) Diagnoses Injury of left rotator cuff, initial encounter S46.002A Encounter type: initial encounter CPT Codes Coding - 32942 Large joint: 82257 - Large joint ([id number])
== END 2025-01-26 11:46 | disposition home or self-care (01) ==
LOC: HO.HOS 11:30
PROVIDERS: PCP Internal Medicine; Visit Provider Physician Assistant
DX: S46.002A Unspecified injury of muscle(s) and tendon(s) of the rotator cuff of left shoulder, initial encounter (principal)
CPT/HCPCS: 20610

== ENCOUNTER 2025-03-22 10:35 | Outpatient (AMB) | payer OTHER, SELFPAY ==
--- NOTE | 2025-03-22 10:57 | MHC.OFFVIS ---
Intake Visit Reasons: OV - Left Shoulder - Discuss Surgery Intake Note: Meli is a 49 year old right hand dominant male who presents today for a follow up of his Left Shoulder. This is a Work Related injury from 09/07/24 when the patient fell off a ladder. Previous complaints of numbness and tingling throughout the left upper extremity, an MRI was ordered and he followed with Dr. Fernandez who then referred for concerns of a possible rotator cuff tear. Patient was also seen with sumit , who provided him with an order for physical therapy and an injection. He was referred to discuss if surgery would benefit him. Allergies No Known Allergies Allergy (Verified 01/26/25 10:09) HPI HPI OV - Left Shoulder - Discuss Surgery: Details: Meli is a 49 year old right hand dominant male who presents today for a follow up of his Left Shoulder. This is a Work Related injury from 09/07/24 when the patient fell off a ladder. Previous complaints of numbness and tingling throughout the left upper extremity, an MRI was ordered and he followed with Dr. Fernandez who then referred for concerns of a possible rotator cuff tear. Patient was also seen with our PA , who provided him with an order for physical therapy and an injection. He was referred to discuss if surgery would benefit him. Her feels that he cannot use his arm wihtout pain and weakness. Nothing has been helpful other than the injection but that was very brief. 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 1. Supraspinatus tendinopathy with superimposed low-grade tears. 2. Moderate grade tearing of the subscapularis tendon. 3. Acromioclavicular and glenohumeral joint osteoarthritis. 4. Mild subacromial bursitis. 5. Glenoid labral tearing. Assessment & Plan Assessment & Plan (1) Partial thickness rotator cuff tear: Code(s): M75.110 - Incomplete rotator cuff tear or rupture of unspecified shoulder, not specified as traumatic Category: Medical Plan: This is a 49 yo with ongoing shoulder pain and weakness after a work injury 6 months ago. He has not improved with PT, injections and activity modification. He has seen multiple providers and does complain of global shoulder pain. His exam and MRI however are consistent with partial thickness supraspinatus/subscapularis and SLAP tear. He does not have adhesive capsulitis and I recommend shoulder with possible RTC repair and possible biceps tentomy vs tenodesis. I discussed the risks, benefits and alternatives including but not limited to the risk of pain, infection, stiffness, need for further surgery, extended disability as well as potential medical complications such as blood clots, pulmonary embolism and cardiac complications. I emphasized the importance of post op PT and the goals of surgery. He has been seen in physiatry and they felt his symptoms were not related to the spine. I reviewed this with him and answered all of his questions. We will proceed forward with surgery. He will remain OOW. (2) Partial tear subscapularis tendon: Code(s): S46.819A - Strain of other muscles, fascia and tendons at shoulder and upper arm level, unspecified arm, initial encounter Category: Medical Plan: (3) SLAP (superior labrum from anterior to posterior) tear: Code(s): S43.439A - Superior glenoid labrum lesion of unspecified shoulder, initial encounter Category: Medical Plan: Coding Level of Care Code Est Pt Level 4 (43378) Diagnoses Partial thickness rotator cuff tear M75.110 Partial tear subscapularis tendon S46.819A SLAP (superior labrum from anterior to posterior) tear S43.439A
--- OUTSIDE RECORDS SUMMARY | 2025-03-22 12:38 | XMS_ITS | Clinical Summary ---
Author Organization [facility] Address [address] [place] [address] Care Team Providers Care Master Scheduler Name Role Phone Luiz Ma MD Primary [...] once daily 16 g 1 09/20/2024 Active valsartan (DIOVAN) 80 mg tablet TOME 1 TABLETA POR VIA ORAL TODOS LOS AGOSTO 90 Tablet 01/25/2025 Active Active Problems Problem Noted Date Diagnosed [...] Pf, [place]-sucrose, 30 Mcg/0.3 Ml, 12yr+ 06/18/2023 Pfizer-[employer] COVID-19 Vac cine Bivalent, (STARK PFIZER-BIONTECH COVID-19 [...] 50+ (1 of 1 - PCV) 09/19/2023 [id number] ( season) 2025 06/18/2023, 03/20/2022, 07/29/2021, Additional [...] Date/Time Associated Diagnosis Comments REFERRAL SCANNED DOCUMENT 01/26/2025 3:00 AM EDT REFERRAL TO ORTHOPEDICS Routine 01/26/2025 3:00 AM EDT Primary osteoarthritis of left knee HGA1C W/EAG Routine 09/20/2024 4:29 PM EDT [...] Health Maintenance Results * REFERRAL SCANNED DOCUMENT (01/26/2025 3:00 AM EDT) 01/26/2025 3:00 AM EDT us Luiz Ma MD SCAN REFERRAL Final Result * REFERRAL TO ORTHOPEDICS (01/26/2025 3:00 AM EDT) 01/26/2025 3:00 AM EDT us Luiz Ma MD REFERRAL Final Result * (ABNORMAL) HGA1C W/EAG (09/20/2024 4:29 PM EDT) HEMOGLOBIN A1C 6.3(H) <5.7 % [facility] Comment: For someone without known diabetes, a [...] diabetes for children. EAG (MG/DL) 134 mg/dL [facility] EAG (MMOL/L) 7.4 mmol/L [facility] Blood Blood / Unknown 09/20/2024 4 :29 PM EDT 09/20/2024 4:29 PM EDT Narrative [facility] - 09/21/2024 2:06 PM EDT FASTING:NO us Luiz Ma MD LAB - BLOOD DRAW Final Resul t [facility] [address] [place] [address], [facility] [address] [place] [phone] * (ABNORMAL) LIPIDS W RFLX TO DIRECT LDL (06/25/2023 9:09 AM EST) CHOLESTEROL, TOTAL 219(H) <200 mg/dL [facility] HDL CHOLESTEROL 44 > OR = 40 mg/dL [facility] TRIGLYCERIDES 182(H) <150 mg/dL [facility] LDL-CHOLESTEROL 143(H) 99 mg/dL (calc) [facility] Comment: Reference range: <100 Desirable range <100 mg/dL for primary prevention; <70 mg/dL for patients with CHD or diabetic patients with > or = 2 CHD risk factors. LDL-C is now calculated using the Vishnu-Horton calculation, which is a validated novel method providing better accuracy than the Friedewald equation in the estimation of LDL-C. Vishnu SS et al. KATHRIN. 2013;310(19): 6387-7012 (http://education.Ocelus/faq/WKB270) CHOL/HDLC RATIO 5.0(H) <5.0 (calc) [facility] NON-HDL CHOLESTEROL 175(H) <130 mg/dL (calc) [facility] Comment: For patients with diabetes plus 1 major ASCVD risk factor, treating to a non-HDL-C goal of <100 mg/dL (LDL-C of <70 mg/dL) is considered a therapeutic option. Blood Blood / Unknown 06/25/2023 9 :09 AM EST 06/25/2023 9:10 AM EST Narrative [facility] - 06/26/2023 5:51 AM EST FASTING:YES us Luiz Ma MD LAB - BLOOD DRAW Final Resul t [facility] [address] [place] [address], [facility] [address] [place] [phone] * HISTORIC COLONOSCOPY (12/08/2022 3:00 AM EDT) 12/08/2022 3:00 AM EDT us Luiz Ma MD PROCEDURES Edited Resul t - Final * RPR w/ Reflex Titer/FTA/Confirmation (07/07/2022 8:43 AM EST) RPR (DX) W/REFL TITER AND CONFIRMATORY TESTING NON-REACT IGNACIO NON-REACT IGNACIO [facility] Blood Blood / Unknown 07/07/2022 8 :43 AM EST 07/07/2022 8:43 AM EST Luiz Ma MD LAB - BLOOD DRAW Final Resul t Performing Organization Address [facility] Co de Phone Number [employer] [facility] [address] [address], [facility] [address] ([address]) [place] [address] * HIV 1/2 AG & AB W/RFLX (4TH GEN) (03/20/2022 3:36 PM EDT) HIV AG/AB, 4TH GEN NON-REAC TIVE NON-REAC TIVE [facility] [facility] Comment: HIV-1 antigen and HIV-1/HIV-2 antibodies were [...] purpose. For additional information please refer to http://education.HeySpace.Bioxiness Pharmaceuticals/faq/BKX897 (This link is being provided for informational/ educational purposes only.) The performance of this assay has not been clinically validated in patients less than 2 years old. Blood Blood / Unknown 03/20/2022 3 :36 PM EDT 03/20/2022 3:36 PM EDT Sushant GÓMEZ LAB - BLOOD DRAW Edited Result - Final Performing Organization Address [facility]/ZIP Co de Phone Number [facility] [address] [address], [facility] [address] [address] * Hep C Antibody with Reflex HCV RNA (03/20/2022 3:33 PM EDT) HEPATITIS C ANTIBODY NON-REACT IGNACIO NON-REACT IGNACIO [facility] SIGNAL TO CUT-OFF 0.03 <1.00 [facility] Comment: HCV antibody was non-reactive. There is no laboratory evidence of HCV infection. In most cases, no further action is required. However, if recent HCV exposure is suspected, a test for HCV RNA (test code 83533) is suggested. For additional information please refer to http://education.Easy Taxi/faq/GJT91r7 (This link is being provided for informational/ educational purposes only.) Blood Blood / Unknown 03/20/2022 3 :33 PM EDT 03/20/2022 3:33 PM EDT Narrative [facility] - 03/21/2022 11:30 AM EDT FASTING:NO Luiz Ma MD LAB - BLOOD DRAW Edited Resu lt - Final [facility] [address] [address], [facility] [address] [address] from Last 3 Months or Most Recently Relevant to Health Maintenance Insurance [employer] Care Teams Master Scheduler Relationship Specialty Start Date End Date Luiz Ma MD [address] [place] [address] PCP - General Internal Medicine 01/13/22
--- OUTSIDE RECORDS SUMMARY | 2025-03-22 12:38 | XMS_ITS | Clinical Summary ---
Author Organization [employer] Address [address] [facility] 7t [place] [address] Care Team Providers Care Manager Library Name Role Phone Unavailable Primary Care Provider [...] of 1 - PCV) 09/19/2023 COVID-19 Vaccine (2024- season) 2025 06/18/2023, 03/20/2022, 07/29/2021, Additional history exists Influenza Vaccine (#1) 2025 , 06/18/2023, 03/20/2022 Lipid Panel 04/29/2025 04/29/2020 DTaP/Tdap/Td Vaccines (2 - Td or Tdap) 10/07/2033 10/08/2023 RSV Patients and Patients Aged 60 years or older (1 - 1-dose 75+ series) 2048 HIV Screening Completed 03/20/2022 Zoster Vaccines Completed 01/21/2024, 10/08/2023 HIB [...] LDL-C. Vishnu AGUAYO et al. KATHRIN. 2013;310(19): 7110-4982 (http://education.[employer]Infrastructure Networks/faq/DXQ133) Non-HDL Cholesterol 193(H) <130 mg/dL (calc) [facility] Comment: For patients with diabetes plus 1 major ASCVD risk factor, treating to a non-HDL-C goal of <100 mg/dL (LDL-C of <70 mg/dL) is considered a therapeutic option. Triglycerides 484(H) <150 mg/dL [facility] Comment: If a non-fasting specimen was collected, consider repeat triglyceride testing on a fasting specimen if clinically indicated. Marisela et al. J. of Clin. Lipidol. 2015;9:129-169. 04/29/2020 2:42 PM EST us Elizabeth Barger MD LAB BLOOD ORDERABLES Final Res ult [facility] Critical access hospital [address] from Last 3 Months or Most Recently Relevant to Health Maintenance Insurance C3
--- OUTSIDE RECORDS SUMMARY | 2025-03-22 12:38 | XMS_ITS | Clinical Summary ---
Author Organization [facility] it Address [address] [place] [address] Care Team Providers Care Career Development Coordinator Name Role Phone Sushant Posey Primary Care Provider [phone] Social History Tobacco Use Types Packs/Day Years [...] - Td or Tdap) 10/07/2033 10/08/2023 RSV Immunization Adult Patients (1 - 1-dose 75+ series) 2048 Zoster Vaccines Completed 01/21/2024, 10/08/2023 HIB Vaccines [...] age to complete this topic Care Teams Career Development Coordinator Relationship Specialty Start Date End Date Sushant Posey PA [address] [place] [address] PCP - General Internal Medicine 06/09/21
--- OUTSIDE RECORDS SUMMARY | 2025-03-22 12:38 | XMS_ITS ---
Author Organization [facility] Address [address] [place] [address] Care Team Providers Care Senior Product Development Scientist Name Role Phone Luiz Ma MD Primary Care Provider [id number] [facility] Program Status:Enrolled (Active) Start date:07/22/2022 Enrollment date:07/22/2022 Case Team Name Relationship Phone Rosie Archer RN(Responsible Staff) [phone] Continued Care and Services Coordination
== END 2025-03-22 11:56 | disposition home or self-care (01) ==
LOC: HO.HOS 10:36
PROVIDERS: PCP Internal Medicine; Visit Provider Orthopaedic Surgery
DX: M75.112 Incomplete rotator cuff tear or rupture of left shoulder, not specified as traumatic (principal); S46.812A Strain of other muscles, fascia and tendons at shoulder and upper arm level, left arm, initial encounter; S43.432A Superior glenoid labrum lesion of left shoulder, initial encounter
CPT/HCPCS: 99214

== ENCOUNTER → 2025-03-22 10:35 | Outpatient (BNVA) | payer OTHER, SELFPAY | PROVIDERS: PCP Internal Medicine; Visit Provider Orthopaedic Surgery | DX: Z71.2 Person consulting for explanation of examination or test findings (principal); M75.112 Incomplete rotator cuff tear or rupture of left shoulder, not specified as traumatic; S46.812A Strain of other muscles, fascia and tendons at shoulder and upper arm level, left arm, initial encounter; S43.432A Superior glenoid labrum lesion of left shoulder, initial encounter | CPT/HCPCS: 99212 ==

== ENCOUNTER 2025-04-04 13:47 | Outpatient (AMB) | payer MEDICAID, SELFPAY ==
--- NOTE | 2025-04-04 13:52 | MHC.OFFVIS ---
Intake Visit Reasons: erectile dysfunction. 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 Ma. He has a past medical history of hyperlipidemia. He presents to the office today as a new patient for erectile dysfunction. In discussion with the patient today he reports noting over the last 3-6 months he has been having issues maintaining his erections. He reports previously he had been able to have multiple sexual encounters daily however feels more frequently he has been unable to do this in his worried that he has erectile dysfunction. We did discuss healthy sexual behaviors. He describes prior to his marriage 8 years ago he had been able to have multiple sexual encounters daily and feels currently he is only able to have sexual intercourse one time per day. He reports typically he is able to obtain and maintain erection for at least 30 minutes. He otherwise denies any bothersome urinary issues. He denies urinary urgency, urinary frequency, incontinence, nocturia, hematuria, dysuria, foul smelling urine, changes to urinary stream, flank pain, fever, and or chills. He is happy with his current voiding parameters. All questions were answered. In office urinalysis results reviewed with the patient today. He otherwise offers no other issues or concerns at this time. 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 Review of Systems Const All systems reviewed & are unremarkable except as noted in HPI and below Physical Exam Const General: cooperative, healthy appearing, comfortable, no acute distress, well developed, alert and awake Orientation/consciousness: patient oriented x3 Limitations: no limitations HEENT Head: Yes normal to inspection, Yes normocephalic and Yes atraumatic Ears: hearing grossly normal bilaterally Eyes General: appearance normal, both eyes and all related structures Neck Neck: Yes normal visual inspection and Yes trachea midline Chest Chest palpation & inspection: normal inspection of the chest Resp Effort & Inspection: normal respiratory effort and able to speak in complete sentences Cardio Rate: regular rate GI Inspection: Yes normal to inspection General: Yes no CVA tenderness Back/Spine/Pelvis Back: no CVA tenderness Skin General skin exam: no rashes or lesions noted Neuro General: patient oriented x3 Extrem General: Yes normal to inspection Psych Appearance: grossly normal and well kempt Mental Status: mental status grossly normal Speech and movement: Normal speech and movement present and Clear speech present Affect: normal affect Attitude: cooperative Thought process: Normal thought process present Thought content: Normal thought content present Insight: Fair insight present (Psych) Judgement: Fair judgement present (Psych) Results AMB Urinalysis, Automated UA Leukoctes 0 Li/uL Last Edit by [facility] on 04/04/25 14:03 UA Nitrite Negative Last Edit by [facility] on 04/04/25 14:03 UA Urobilinogen 0.2 mg/dL Last Edit by [facility] on 04/04/25 14:03 UA Protein 0 mg/dL Last Edit by [facility] on 04/04/25 14:03 UA pH 6.0 Last Edit by [facility] on 04/04/25 14:03 UA Blood 0 Dean/uL Last Edit by [facility], [facility] on 04/04/25 14:03 UA Specific [place] 1.020 Last Edit by [facility] on 04/04/25 14:03 UA Ketone Negative Last Edit by [facility], [facility] on 04/04/25 14:03 UA Bilirubin 0 mg/dL Last Edit by [facility] on 04/04/25 14:03 UA Glucose 0 mg/dL Last Edit by [facility] on 04/04/25 14:03 Results Reviewed Results Reviewed: Laboratory Last Values Urine pH (Auto) 6.0 04/04/25 14:02 Specific [place] (Auto) 1.020 04/04/25 14:02 Urine Protein (Auto) 0 mg/dL 04/04/25 14:02 Glucose (UA)(Auto) 0 mg/dL 04/04/25 14:02 Urine Ketones (Auto) Negative 04/04/25 14:02 Urine Blood (Auto) 0 Dean/uL 04/04/25 14:02 Urine Nitrite (Auto) Negative 04/04/25 14:02 Urine Bilirubin (Auto) 0 mg/dL 04/04/25 14:02 Urine Urobilinogen (Auto) 0.2 mg/dL 04/04/25 14:02 Leukocyte Esterase (Auto) 0 Li/uL 04/04/25 14:02 Assessment & Plan Assessment & Plan (1) Erectile dysfunction: Code(s): N52.9 - Male erectile dysfunction, unspecified Category: Medical Plan In office urinalysis results reviewed with the patient today; as noted above. We did discussed healthy sexual behaviors. He currently denies any bothersome urinary issues or concerns. He reports be happy with current voiding parameters. We did discussed lifestyle modifications to assist. Will obtain PSA and testosterone for further assessment evaluation. Follow-up in 1-3 months with labs to be completed prior; or sooner with any issues, concerns, and or questions. Orders: Orders Prostate Specific Antigen Today N52.9 - Male erectile dysfunction, unspecified Testosterone, Free/Total Today N52.9 - Male erectile dysfunction, unspecified Patient Instructions: The patient had an opportunity to ask questions regarding the treatment plan. All questions were answered. Physical exam, labs, and imaging were discussed and reviewed in detail. As well as risks, benefits, and discussion of treatment choices. No major barriers to understanding were identified. The patient expressed understanding and agreement with the above treatment plan. The patient was made aware they should contact our office by phone for worsening of their current condition, the appearance of new symptoms, or with any questions or concerns. Compliance is encouraged with any medications and follow up testing that is ordered. It is a privilege to be allowed the opportunity to participate in? your urological care.? Again, if you have any questions or concerns If you have any questions or concerns please do not hesitate to contact me. The office is [phone]. This note is constructed using voice recognition software. While every effort has been made to ensure accuracy remelt pan tank operator errors may have been included. Yours sincerely, PHYLLIS Samano Coding Level of Care Code New Pt Level 3 (17542) Diagnoses Erectile dysfunction N52.9
== END 2025-04-04 14:36 | disposition home or self-care (01) ==
LOC: HO.HUSH 13:47
PROVIDERS: PCP Internal Medicine; Visit Provider Nurse Practitioner Family
DX: N52.9 Male erectile dysfunction, unspecified (principal)
CPT/HCPCS: 99203

== ENCOUNTER → 2025-04-04 13:47 | Outpatient (BNVA) | payer OTHER, MEDICAID, SELFPAY | PROVIDERS: PCP Internal Medicine; Visit Provider Nurse Practitioner Family | DX: N52.9 Male erectile dysfunction, unspecified (principal) | CPT/HCPCS: 99212 ==

== ENCOUNTER 2025-04-05 09:28 | Outpatient (REF) | payer MEDICAID, SELFPAY ==
[2025-04-05 11:59] LABS: Prostate Specific Antigen 1.56 ng/mL (<0.05-4.0)
[2025-04-14 14:59] LABS: Testosterone, Free 109.6 pg/mL (35.0-155.0)
== END 2025-04-05 09:29 | disposition home or self-care (01) ==
LOC: HO.10HDL 09:28
PROVIDERS: Visit Provider Nurse Practitioner Family
DX: Z12.5 Encounter for screening for malignant neoplasm of prostate (principal); N52.9 Male erectile dysfunction, unspecified
CPT/HCPCS: 36415; 84153; 84402; 84403

== ENCOUNTER 2025-04-06 14:08 | Outpatient (REF) | payer OTHER, SELFPAY ==
--- NOTE | 2025-04-06 14:13 | EMG_ITS ---
Chief complaint: Please see my last note in Physiatry. Since last time I saw him, he has seen Dr. Lewis and surgery for left shoulder is planned for 04/18/2025. Reason for referral: Evaluate for brachial plexopathy Procedure done: Left upper extremity NCS/EMG Precautions and/or limitations: None The limb temperature was monitored continuously and remained between 32-36 degrees C during the performance of the NCS. Nerve Conduction Studies Anti Sensory Summary Table ?Stim Site NR Onset (ms) Norm Onset (ms) Peak (ms) Norm Peak (ms) O-P Amp (?V) Norm O-P Amp Site1 Site2 Delta-0 (ms) Dist (cm) Jordan (m/s) Norm Jordan (m/s) Left Median Anti Sensory (2nd Digit) Wrist ? 2.5 3.5 <3.6 23.7 >10 Wrist 2nd Digit 2.5 14.0 56 Left Radial Anti Sensory (Thumb) Forearm ? 1.6 2.2 <3.1 10.5 Forearm Thumb 1.6 0.0 Left Ulnar Anti Sensory (5th Digit) Wrist ? 2.6 3.5 <3.7 16.9 >15.0 Wrist 5th Digit 2.6 14.0 54 Motor Summary Table ?Stim Site NR Onset (ms) Norm Onset (ms) O-P Amp (mV) Norm O-P Amp iAmp (mV) Amp (1st) (%) Site1 Site2 Delta-0 (ms) Dist (cm) Jordan (m/s) Norm Jordan (m/s) Left Median Motor (Abd Poll Brev) Wrist ? 3.9 <3.9 5.1 >4.5 6.2 100.0 Elbow Wrist 3.8 22.0 58 >45 Elbow ? 7.7 4.5 5.6 88.2 Left Ulnar Motor (Abd Dig Minimi) Wrist ? 2.8 <3.0 6.8 >5 8.8 100.0 B Elbow Wrist 3.5 21.5 61 >45 B Elbow ? 6.3 6.5 8.7 95.6 A Elbow B Elbow 1.6 10.0 62 >45 A Elbow ? 7.9 5.8 7.9 85.3 EMG ?Side Muscle Nerve Root Ins Act Fibs Psw Amp Dur Poly Recrt Int Pat Comment Left 1stDorInt Ulnar C8-T1 Nml Nml Nml Nml Nml 0 Nml Complete Left FlexCarRad Median C6-7 Nml Nml Nml Nml Nml 0 Nml Complete Left Biceps Musculocut C5-6 Nml Nml Nml Nml Nml 0 Nml Complete Left Triceps Radial C6-7-8 Nml Nml Nml Nml Nml 0 Nml Complete Left Deltoid Axillary C5-6 Nml Nml Nml Nml Nml 0 Nml Complete FINDINGS: All motor and sensory nerves tested showed normal latencies, amplitudes and conduction velocities. Concentric needle EMG was performed in selected muscles of the left upper extremity. Study did not reveal signs of electric abnormalities as shown in the table above. IMPRESSION: 1. This is a normal study. 2. There is no electrodiagnostic evidence for median neuropathy, ulnar neuropathy, brachial plexopathy, or cervical radiculopathy. Thank you for your kind referral. Sagrario Mc MD, ANGIE Board Certified, [place] Board of Physical Medicine and Rehabilitation (ABPMR) Board Certified, [place] Board of Electrodiagnostic Medicine (ABEM) CODIN 19721 x 1 extremity MTDD
--- OUTSIDE RECORDS SUMMARY | 2025-04-06 14:31 | XMS_ITS | Clinical Summary ---
Author Organization [facility] it Address [address] [place] [address] Care Team Providers Care Hourly Team Members Name Role Phone Sushant Posey Primary Care Provider [phone] Social History Tobacco Use Types Packs/Day Years [...] age to complete this topic Care Teams Hourly Team Members Relationship Specialty Start Date End Date Sushant Posey PA [address] [place] [address] PCP - General Internal Medicine 06/09/21
--- OUTSIDE RECORDS SUMMARY | 2025-04-06 14:31 | XMS_ITS | Clinical Summary ---
Author Organization [employer] Address [address] [facility] [address]t [place] [address] Care Team Providers Care Product Trainer Name Role Phone Unavailable Primary Care Provider [...] LDL-C. Vishnu AGUAYO et al. KATHRIN. 2013;310(19): 8069-8185 (http://education.[employer].Carebase/faq/HJA059) Non-HDL Cholesterol 193(H) <130 mg/dL (calc) [facility] Comment: For patients with diabetes plus 1 major ASCVD risk factor, treating to a non-HDL-C goal of <100 mg/dL (LDL-C of <70 mg/dL) is considered a therapeutic option. Triglycerides 484(H) <150 mg/dL [facility] Comment: If a non-fasting specimen was collected, consider repeat triglyceride testing on a fasting specimen if clinically indicated. Marisela et al. J. of Clin. Lipidol. 2015;9:129-169. 04/29/2020 2:42 PM EST us Elizabeth Barger MD LAB BLOOD ORDERABLES Final Res ult [facility] [address] from Last 3 Months or Most Recently Relevant to Health Maintenance Insurance C3
== END 2025-04-06 14:09 | disposition home or self-care (01) ==
LOC: HO.NEURO 14:08
PROVIDERS: Visit Provider Physical Medicine & Rehabilitation
DX: S46.002D Unspecified injury of muscle(s) and tendon(s) of the rotator cuff of left shoulder, subsequent encounter (principal); W11.XXXD Fall on and from ladder, subsequent encounter; R20.0 Anesthesia of skin; M79.642 Pain in left hand
CPT/HCPCS: 95886; 95909

== ENCOUNTER → 2025-04-06 14:13 | Outpatient (BNV) | payer OTHER, SELFPAY | PROVIDERS: Visit Provider Physical Medicine & Rehabilitation | DX: S46.002A Unspecified injury of muscle(s) and tendon(s) of the rotator cuff of left shoulder, initial encounter (principal) | CPT/HCPCS: 95886; 95909 ==

== ENCOUNTER 2025-04-18 09:41 | Day surgery (SDC) | payer OTHER, SELFPAY ==
--- OUTSIDE RECORDS SUMMARY | 2025-04-05 01:47 | XMS_ITS | Clinical Summary ---
Author Organization [employer] Address [address] [facility] 7t [place] [address] Care Team Providers Care Electric Knife Operator Name Role Phone Unavailable Primary Care [...] LDL-C. Vishnu AGUAYO et al. KATHRIN. 2013;310(19): 7680-5098 (http://education.[employer]/faq/PDW017) Non-HDL Cholesterol 193(H) <130 mg/dL (calc) [facility] [...] Final Res ult [facility] [address] from Last 3 Months or Most Recently Relevant to Health Maintenance Insurance C3
[2025-04-09 12:19] VITALS: BMI 29.8
--- NOTE | 2025-04-10 10:21 | P.CONAN_ITS ---
Documented by User: Serina Damian NP 04/10/25 10:29 HPI - Anesthesia Eval Consult details Narrative: 49 yr old male for left Arthroscopic Rotator Cuff Repair scheduled 04/18/25; had phone PAT with RN [place]-speaking, hard of hearing Saw [facility] Preop clinic : no absolute contraindications to proceeding with proposed surgery. Labs, EKG updated, see below. +Tobacco use PMFSH Active Problems Active Problems: All Active Problems Erectile dysfunction (Acute) SLAP (superior labrum from anterior to posterior) tear (Acute) Partial tear subscapularis tendon (Acute) Partial thickness rotator cuff tear (Acute) Cervical pain (Acute) Left arm weakness (Acute) Left arm pain (Acute) Adhesive capsulitis of left shoulder (Acute) Injury of left rotator cuff (Acute) Left knee pain (Acute) Past Medical History Medical History HTN (hypertension) [place] (hard of hearing) Pre-diabetes Arthritis Erectile dysfunction Elevated cholesterol Surgical History Surgical History H/O colonoscopy History of surgery Hx of knee surgery Social History Social History Are you a primary home health care worker to a significant other at home: No Do you presently have visiting nurse or other home services: No Alcohol intake: current Alcohol intake frequency: holidays/special occasions only Patient Tobacco Use Status: Former Tobacco user Tobacco use type: Cigarette Substance Use Type Other:: no longer using Have you been hit, kicked, punched, or otherwise hurt by someone within the past year? 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 Meds Allergies Allergy/AdvReac Type Severity Reaction Status Date / Time No Known Allergies Allergy Verified 04/04/25 14:36 Home Medications ?Medication ?Instructions ?Recorded ?Confirmed ?Last Taken ?Type valsartan 80 mg tablet 80 mg PO DAILY 04/06/2503/18 Unknown History Exam Height,Weight and Vital Signs: Height 5 ft 8 in Weight 88.904 kg Pertinent Lab Results Pertinent Lab Results: 04/06/25 at [place] [facility] [place] BMP Sodium 136 Potassium 4.5 Glucose 112 BUN 14 Creat 0.93 WBC 6.9 RBC 4.72 Hgb 14.9 Hct 43.3 Platelet 245 Narrative Narrative: EKG 03/28/25 NSR, rate 62 Minimal voltage criteria for LVH Nonspeficific ST and T wave abnormality No prior ECG available Documented by User: Connie Maya MD 04/18/25 10:46 PMFSH Past Medical History Medical History HTN (hypertension) [place] (hard of hearing) Pre-diabetes Arthritis Erectile dysfunction Elevated cholesterol Family History Family history of problems with anesthesia: No Surgical History Surgical History H/O colonoscopy History of surgery Hx of knee surgery History of Problems with Anesthesia: No Social History Social History Are you a primary home health care worker to a significant other at home: No Do you presently have visiting nurse or other home services: No Alcohol intake: current Alcohol intake frequency: holidays/special occasions only Patient Tobacco Use Status: Former Tobacco user Tobacco use type: Cigarette Substance Use Type Other:: no longer using Have you been hit, kicked, punched, or otherwise hurt by someone within the past year? 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 Meds Allergies Allergy/AdvReac Type Severity Reaction Status Date / Time No Known Allergies Allergy Verified 04/04/25 14:36 Home Medications ?Medication ?Instructions ?Recorded ?Confirmed ?Last Taken ?Type valsartan 80 mg tablet 80 mg PO DAILY 04/06/2503/18 Unknown History Exam Airway Mallampati Class: II TM Dist: >3cm Neck ROM: Full Heart: rrr Lungs: cta Assessment and Plan Assessment Anesthesia Assessment: Anesthesia Plan Discussed and Chart Reviewed Final Anesthetic Review Family History of Problems with Anesthesia: No History of Problems with Anesthesia: No NPO: Yes ASA Class: II Final Preanesthetic Review: No Changes in Pt Med Stat, Meds/Allgs Chart Reviewed, Consent Obtained/Reviewed and Anes Risks/Benef Reviewed Patient Risk: Intermediate Procedure Risk: Intermediate Anesthetic Plan Anesthetic Plan: GA and Agree w/ Assess. and Plan Disposition: Standard PACU
--- NOTE | 2025-04-18 10:05 | PC.NURSE ---
SALZAAR POSITIVE. AWAITING FOR MD STORM TO SPEAK TO PATIENT REGARDING HIS PLAN OF CARE. MD STORM BY THE BEDSIDE SPEAKING TO PATIENT.
[2025-04-18 10:07] VITALS: BP 139/97; PULSE 71; RESP 16; TEMP 37.1; O2SAT 96
--- NOTE | 2025-04-18 10:17 | MHC.SHP ---
Pre-Procedural Eval Section A - 24 Hr Update-Section A only Date of Service: 04/18/25 The patient is an INPATIENT: No Changes since office visit: No Cold of Flu in the past 2 weeks, No New Medical Problems, No Changes in Medication and No Patient answered all questions The patient has been examined within 24 hours of the surgical procedure. The History & Physical has been completed within 30 days and I have reviewed it.: Yes Section B - Complete if H&P > 30 days Chief Complaint: Unspecified rotator cuff tear or rupture of left Allergies: Allergies Allergy/AdvReac Type Severity Reaction Status Date / Time No Known Allergies Allergy Verified 04/04/25 14:36 Plan I have reviewed the history and physical and performed a pertinent physical examination on my patient. No changes have occurred unless specified. Time Spent With Patient Time: Total time managing care of this patient today ____ minutes.
[2025-04-18] MEDS: Lactated Ringers 1,000 ML 100 ML IVCONT (10:24)
--- NOTE | 2025-04-18 11:52 | P.BOP_ITS ---
Brief Operative Note Date of Service: 04/18/25 Pre-op diagnosis: RTC tear Post-op diagnosis: same Procedure: RTC repair Implants: Lg Regeneten Bioinductive patch, Puentes and Nephlorena Surgeon: Jeet Lewis MD Anesthesia: regional Was an Packing Machine Operator used for this Procedure?: Yes Packing Machine Operator: Juliana Holliday Estimated blood loss (mL): 10 IV fluids (mL): 750 Pathology: none sent Condition: stable Disposition: PACU
[2025-04-18 12:00] VITALS: BP 141/85; PULSE 80; RESP 12; TEMP 36.6; O2SAT 97
[2025-04-18 12:05] VITALS: BP 137/90; PULSE 78; RESP 16; O2SAT 99
[2025-04-18 12:10] VITALS: BP 135/90; PULSE 73; RESP 19; O2SAT 99
[2025-04-18 12:15] VITALS: BP 134/89; PULSE 75; RESP 19; O2SAT 94
[2025-04-18 12:30] VITALS: BP 129/82; PULSE 72; RESP 18; TEMP 36.3; O2SAT 95
--- NOTE | 2025-04-26 11:04 | P.OP_ITS ---
Operative Note Operative Note Date of Service: 04/18/25 Narrative: Date of Service: 04/18/25 Pre-op diagnosis: RTC tear Post-op diagnosis: same Procedure: RTC repair Implants: Lg Regeneten Bioinductive patch, [employer] Surgeon: Jeet Lewis MD Anesthesia: regional Was an Retail Attendant used for this Procedure?: Yes Retail Attendant: Juliana Holliday Estimated blood loss (mL): 10 IV fluids (mL): 750 Pathology: none sent Condition: stable Disposition: PACU Procedure in detail: Patient was brought to the operating room and placed the the beach chair position. All bony prominences were well padded and the limb was prepped and draped in standard sterile fashion. A time out was called to identify proper site, proper procedure and proper surgeon. IV antibiotics per weight were administered. I began by making a posterolateral stab incision with a 15 blade. A blunt trochar was placed into the glenohumeral joint and I insufflated the joint with saline and a 30 degree arthroscope was placed. I established an outside- in anterior portal just distal to the biceps tendon. I then began my inspection of the glenohumeral joint. There was a small degenerative SLAP tear at the biceps anchor ( Type 1). There were minimal cartilage changes at the inferior glenoid without humeral head changes. There was an intact superior cuff. There was low-grade subscapularis tearing at the humeral insertion that was debrided but did not warrant repair. I debrided the loose cartilage of the glenoid and the degenerative labral tearing. I then removed the trochar and entered the subacromial space. A direct lateral portal was then established and I performed a bursectomy. The cuff was then ex amined. There was low grade fraying of the suprspinatus and infraspiantus both intra substance and at the insertion. There was no full thickness tearing. I probed and debrided with a shaver. I then elected to place a large Regeneten collagen bio-inductive patch. I established a second lateral portal and then inserted the patch through this portal. It was positioned over the supraspinatus and infraspinatus, posterior to the biceps and held in place with two lateral bone iam and 4 medial soft tissue iam. Once I was satisfied with the repair final images were captured and I removed all instrumentation. Portals were closed with nylon. Patient was placed in an abduction sling, extubated and brought to the recovery room in stable condition. There were no known complications.
== END 2025-04-18 13:22 | disposition home or self-care (01) ==
LOC: HO.SSS 09:42
PROVIDERS: PCP Internal Medicine; Visit Provider Orthopaedic Surgery
PROC: (CPT 29827; principal; 2025-04-18 13:00)
DX: S46.012A Strain of muscle(s) and tendon(s) of the rotator cuff of left shoulder, initial encounter (principal); S43.432A Superior glenoid labrum lesion of left shoulder, initial encounter; M25.512 Pain in left shoulder; M25.812 Other specified joint disorders, left shoulder; W11.XXXA Fall on and from ladder, initial encounter; Y93.9 Activity, unspecified; Y92.9 Unspecified place or not applicable; Y99.0 Civilian activity done for income or pay; I10 Essential (primary) hypertension; R73.03 Prediabetes; Z79.899 Other long term (current) drug therapy
CPT/HCPCS: 29827; C1713; C1763; J0131; J0165; J0665; J0690; J1100; J2003; J2250; J2405; J2704; J3010

== ENCOUNTER → 2025-04-18 09:41 | Outpatient (BNV) | payer OTHER, SELFPAY | PROVIDERS: PCP Internal Medicine; Visit Provider Orthopaedic Surgery | DX: S46.012A Strain of muscle(s) and tendon(s) of the rotator cuff of left shoulder, initial encounter (principal); S43.432A Superior glenoid labrum lesion of left shoulder, initial encounter | CPT/HCPCS: 29827 ==

== ENCOUNTER 2025-04-26 09:54 | Outpatient (AMB) | payer OTHER, SELFPAY ==
--- NOTE | 2025-04-26 10:07 | A.OFFVIS_ITS ---
Intake Visit Reasons: PO LT RTC repair 04/18/25 NE Intake Note: Meli is a 49 year old right hand dominant male who presents today for a post operative appointment status post left RTC repair 04/18/25 NE. Patient reports he is still having some pain. He is using his medication as directed. Legal Paraprofessional Services: Legal Paraprofessional Present (Genny ([id number])) Allergies No Known Allergies Allergy (Verified 04/26/25 10:15) HPI Comments Details: Mr. Edwards is a 49-year-old male who presents to the office today status post left shoulder rotator cuff patch performed on 04/18/[address] Lewis. Patient presents to the office today in the sling with abduction pillow removed. He reports that this was producing more pain to the shoulder and therefore he removed it. Patient was educated to reapply the abduction pillow. Patient reports pain is managed and is getting better slowly. He does not have any physical therapy appointment scheduled at this time. No additional complaints. 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 Const General: cooperative, healthy appearing and no acute distress Resp Effort & Inspection: normal respiratory effort and able to speak in complete sentences Extrem Other: Left shoulder incision sites are clean dry and intact. Sutures intact. No surrounding erythema or drainage. No signs of infection. 45 degrees forward flexion abduction. External rotation to neutral. NVI. Psych Appearance: grossly normal Mental Status: mental status grossly normal Attitude: cooperative Assessment & Plan Assessment & Plan (1) Partial thickness rotator cuff tear: Code(s): M75.110 - Incomplete rotator cuff tear or rupture of unspecified shoulder, not specified as traumatic Category: Medical Plan Mr. Edwards is a 49-year-old male who presents to the office today status post left shoulder rotator cuff patch performed on 04/18/[address] Lewis. Patient presents to the office today in the sling with abduction pillow removed. He reports that this was producing more pain to the shoulder and therefore he removed it. Patient was educated to reapply the abduction pillow. Patient reports pain is managed and is getting better slowly. He does not have any physical therapy appointment scheduled at this time. No additional complaints. While in the office today, sutures removed and Steri-Strips were applied. Patient was placed back into the sling with instruction to add the abduction pillow back when he returns home. He will remain in the sling for 6 weeks. I instructed the patient to begin physical therapy as soon as possible and a physical therapy rotator cuff patch protocol was provided to the patient to bring with him at his 1st visit. He will follow up in [address] Lewis, sooner if needed. Orders: Orders PT Evaluation and Treatment Today M75.110 - Incomplete rotator cuff tear or rupture of unspecified shoulder, not specified as traumatic Coding Level of Care Code Global (00483) Diagnoses Partial thickness rotator cuff tear M75.110
== END 2025-04-26 10:36 | disposition home or self-care (01) ==
LOC: HO.HOS 09:54
PROVIDERS: PCP Internal Medicine; Visit Provider Physician Assistant
DX: M75.110 Incomplete rotator cuff tear or rupture of unspecified shoulder, not specified as traumatic (principal)
CPT/HCPCS: 99024

== ENCOUNTER → 2025-04-26 09:54 | Outpatient (BNVA) | payer OTHER, SELFPAY | PROVIDERS: PCP Internal Medicine; Visit Provider Physician Assistant | DX: M75.112 Incomplete rotator cuff tear or rupture of left shoulder, not specified as traumatic (principal); Z98.890 Other specified postprocedural states | CPT/HCPCS: 99212 ==